=== PATIENT | female | born 1955 | race Caucasian/White ===

== ENCOUNTER → 2020-05-03 13:09 | Outpatient (BNVA) | payer BC, MEDICARE, SELFPAY | PROVIDERS: Family Provider Emergency Medicine; PCP Emergency Medicine; Visit Provider Family Medicine | DX: I10 Essential (primary) hypertension (principal); J30.2 Other seasonal allergic rhinitis; Z13.220 Encounter for screening for lipoid disorders; Z13.6 Encounter for screening for cardiovascular disorders; J32.9 Chronic sinusitis, unspecified; J41.0 Simple chronic bronchitis; J32.0 Chronic maxillary sinusitis; Z72.0 Tobacco use | CPT/HCPCS: 80053; 80061 ==

== ENCOUNTER → 2020-12-20 14:44 | Outpatient (BNVA) | payer BC, MEDICARE, SELFPAY | PROVIDERS: Family Provider Emergency Medicine; PCP Emergency Medicine; Visit Provider Family Medicine | DX: I10 Essential (primary) hypertension (principal); J32.0 Chronic maxillary sinusitis; H61.23 Impacted cerumen, bilateral; J44.9 Chronic obstructive pulmonary disease, unspecified | CPT/HCPCS: 80048 ==

== ENCOUNTER → 2021-05-18 11:41 | Outpatient (BNVA) | payer BC, MEDICARE, SELFPAY | PROVIDERS: Family Provider Emergency Medicine; PCP Emergency Medicine; Visit Provider Family Medicine | DX: I10 Essential (primary) hypertension (principal); Z20.822 Contact with and (suspected) exposure to COVID-19; J41.0 Simple chronic bronchitis; F90.9 Attention-deficit hyperactivity disorder, unspecified type; Z13.220 Encounter for screening for lipoid disorders; Z13.6 Encounter for screening for cardiovascular disorders; J44.1 Chronic obstructive pulmonary disease with (acute) exacerbation; Z11.59 Encounter for screening for other viral diseases; Z72.0 Tobacco use | CPT/HCPCS: 80053; 80061; 85025; 87635 ==

== ENCOUNTER → 2021-09-19 14:02 | Outpatient (BNVA) | payer BC, MEDICARE, SELFPAY | PROVIDERS: Family Provider Emergency Medicine; PCP Emergency Medicine; Visit Provider Family Medicine | DX: J41.0 Simple chronic bronchitis (principal) | CPT/HCPCS: 71046 ==

== ENCOUNTER → 2021-11-09 11:29 | Outpatient (BNVA) | payer BC, MEDICARE, SELFPAY | PROVIDERS: Family Provider Emergency Medicine; PCP Family Medicine; Visit Provider Internal Medicine Pulmonary Disease | DX: J44.9 Chronic obstructive pulmonary disease, unspecified (principal); I10 Essential (primary) hypertension; Z71.6 Tobacco abuse counseling; R06.00 Dyspnea, unspecified; U09.9 Post COVID-19 condition, unspecified; J30.2 Other seasonal allergic rhinitis; R06.02 Shortness of breath; F17.210 Nicotine dependence, cigarettes, uncomplicated; R06.09 Other forms of dyspnea | CPT/HCPCS: 82785; 83880; 85025; 86003 ==

== ENCOUNTER 2021-11-14 07:04 | Outpatient (CLI) | payer BC, MEDICARE, SELFPAY ==
--- NOTE | 2021-11-14 10:42 | MM_ITS ---
WS: [id number] Bilateral diagnostic 3D tomosynthesis digital mammogram, 11/14/2021 Clinical Data: N64.4 - Mastodynia Comparison: None. Findings: No spiculated masses or clustered calcifications are seen. The breast parenchymal pattern shows fat r eplacement. There is a marker on the left breast with the site of specific pain but no abnormalities are seen. A left breast ultrasound will be performed. MM/[place] [id number] Impression: 1. Negative bilateral mammograms. 2. Left breast ultrasound will be performed. BIRADS: 2-Benign FOLLOW UP: Need Additional Imaging The CAD swatch checker was used.
--- NOTE | 2021-11-14 10:42 | US_ITS ---
WS: [id number] Left breast ultrasound, 11/14/2021 Clinical Data: N64.4 - Mastodynia Comparison: None. Findings: The left breast was scanned at the 6:00 position 4 cm from the nipple. Only normal breast tissue seen . There were no cysts or masses. US/US breast LT limited* [id number] Impression: 1. Negative left breast ultrasound. 2. Return to annual screening mammograms. BIRADS: 2-Benign FOLLOW UP: 1 Year Follow-up
== END 2021-11-14 07:05 | disposition home or self-care (01) ==
LOC: RAD 07:10
PROVIDERS: Family Provider Emergency Medicine; PCP Family Medicine; Visit Provider Family Medicine
DX: N64.4 Mastodynia (principal)
CPT/HCPCS: 76642; 77062

== ENCOUNTER 2021-12-28 08:59 | Outpatient (CLI) | payer BC, MEDICARE, SELFPAY ==
--- NOTE | 2021-12-28 11:23 | PFTS_ITS ---
Date of Study:12/28/21 Date of Dictation: 12/30/2021 MECHANICS: Postbronchodilator forced vital capacity (FVC) is reduced. Postbronchodilator forced expiratory volume in one second (FEV1) is moderately reduced. FEV1/FVC is reduced. There is significant postbronchodilator response FLOW VOLUME LOOP: Sloping of expiratory limb suggestive of airway obstruction. LUNG VOLUMES: Total lung capacity (TLC) is normal. Residual volume (RV) is increased suggestive of air trapping. DIFFUSING CAPACITY FOR CARBON MONOXIDE: Normal INTERPRETATION: The spirometry showed moderate obstructive ventilatory defect. There is significant postbronchodilator response. Lung volumes suggestive of moderate air trapping. Gas transfer is normal. Clinical correlation recommended. MTDD
== END 2021-12-28 09:00 | disposition home or self-care (01) ==
LOC: RT 09:00
PROVIDERS: PCP Family Medicine; Visit Provider Internal Medicine Pulmonary Disease
DX: J44.9 Chronic obstructive pulmonary disease, unspecified (principal)
CPT/HCPCS: 94060; 94618; 94726; 94729; J7614

== ENCOUNTER → 2022-04-10 14:20 | Outpatient (BNVA) | payer BC, MEDICARE, SELFPAY | PROVIDERS: PCP Family Medicine; Visit Provider Family Medicine | DX: J41.0 Simple chronic bronchitis (principal); I10 Essential (primary) hypertension; J30.2 Other seasonal allergic rhinitis; J44.9 Chronic obstructive pulmonary disease, unspecified; E78.5 Hyperlipidemia, unspecified; N64.4 Mastodynia; Z59.9 Problem related to housing and economic circumstances, unspecified | CPT/HCPCS: 80053; 80061; 85025 ==

== ENCOUNTER → 2023-02-05 13:57 | Outpatient (BNVA) | payer BC, MEDICARE, SELFPAY | PROVIDERS: PCP Family Medicine; Visit Provider Nurse Practitioner Family | DX: R30.0 Dysuria (principal); N30.01 Acute cystitis with hematuria | CPT/HCPCS: 81000 ==

== ENCOUNTER → 2023-03-14 10:50 | Outpatient (BNVA) | payer BC, MEDICARE, SELFPAY | PROVIDERS: PCP Family Medicine; Visit Provider Family Medicine | DX: J41.0 Simple chronic bronchitis (principal); I10 Essential (primary) hypertension; J44.9 Chronic obstructive pulmonary disease, unspecified; J30.2 Other seasonal allergic rhinitis; K21.9 Gastro-esophageal reflux disease without esophagitis; E78.5 Hyperlipidemia, unspecified; J32.9 Chronic sinusitis, unspecified; R91.8 Other nonspecific abnormal finding of lung field; J32.0 Chronic maxillary sinusitis; E04.1 Nontoxic single thyroid nodule | CPT/HCPCS: 80053; 80061; 84439; 84443; 84481 ==

== ENCOUNTER → 2023-08-14 13:40 | Outpatient (BNVA) | payer OTHER, MEDICARE, SELFPAY | PROVIDERS: PCP Family Medicine; Visit Provider Family Medicine | DX: E87.6 Hypokalemia (principal); I10 Essential (primary) hypertension | CPT/HCPCS: 80048; 83735 ==

== ENCOUNTER → 2023-09-12 10:55 | Outpatient (BNVA) | payer OTHER, MEDICARE, SELFPAY | PROVIDERS: PCP Family Medicine; Visit Provider Family Medicine | DX: I10 Essential (primary) hypertension (principal); R25.2 Cramp and spasm; M10.9 Gout, unspecified; M19.90 Unspecified osteoarthritis, unspecified site; I48.0 Paroxysmal atrial fibrillation; R00.1 Bradycardia, unspecified | CPT/HCPCS: 80048; 83540; 83735; 84550 ==

== ENCOUNTER → 2023-11-04 08:44 | Outpatient (BNVA) | payer OTHER, MEDICARE, SELFPAY | PROVIDERS: PCP Family Medicine; Visit Provider Family Medicine | DX: E87.6 Hypokalemia (principal); K21.9 Gastro-esophageal reflux disease without esophagitis; I10 Essential (primary) hypertension; J44.9 Chronic obstructive pulmonary disease, unspecified; J30.2 Other seasonal allergic rhinitis; J32.9 Chronic sinusitis, unspecified; M10.9 Gout, unspecified; J41.0 Simple chronic bronchitis; R06.00 Dyspnea, unspecified; R06.02 Shortness of breath; I48.0 Paroxysmal atrial fibrillation | CPT/HCPCS: 71046; 80053; 83880; 85025 ==

== ENCOUNTER 2023-11-22 09:40 | Outpatient (CLI) | payer MEDICARE, OTHER, SELFPAY ==
--- NOTE | 2023-11-22 10:15 | USCV_ITS ---
Geno Wright Age: 67 Gender: F : 1955 Exam Date: 11/22/2023 10:16 Ordering Phys: Kamila Marsh MD Technologist: Harpreet Wheeler [place] [facility] [place]: hypertension BP: 140 / 60 HR: 55 Rhythm: Sinus Technical Quality: Adequate MEASUREMENTS (Male / Female) Normal Values 2D ECHO LV Diastolic Diameter PLAX 4.0 cm 4.2 - 5.9 / 3.9 - 5.3 cm IVS Diastolic Thickness 0.9 cm 0.6 - 1.0 / 0.6 - 0.9 cm IVS Systolic Thickness 1.3 cm LVPW Diastolic Thickness 1.4 cm 0.6 - 1.0 / 0.6 - 0.9 cm LVPW Systolic Thickness 1.5 cm LVOT Diameter 2.3 cm LV Ejection Fraction 2D Teich 62.7 % LV Ejection Fraction MOD 2C 59.4 % LV Ejection Fraction 2C AL 59.1 % LA Diameter 3.8 cm RA Systolic Volume 4C AL 47.4 ml RA Systolic Volume 4C MOD 46.9 ml LA Sys Volume AL 58.6 cm cubed LA Sys Volume Index AL 28.3 cm cubed/m squared Aorta at Sinotubular Diameter 2.1 cm IVC Diameter 1.5 cm M-MODE LA Ao Ratio MM 1.8 AV Cusp Separation MM 1.3 cm DOPPLER AV Peak Velocity 259.0 cm/s LVOT Peak Velocity 106.0 cm/s AV Area Cont Eq vti 1.6 cm squared AV Area Cont Eq pk 1.7 cm squared MV Peak Velocity 99.0 cm/s MV Area PHT 3.3 cm squared Mitral E to A Ratio 1.0 TV Peak Velocity 267.0 cm/s TR Peak Velocity 304.0 cm/s TR Peak Gradient 37.0 mmHg TR Mean Velocity 240.0 cm/s TR Mean Gradient 24.4 mmHg TR Velocity Time Integral 96.9 cm PV Peak Velocity 134.0 cm/s RV Ejection Time 0.3 s FINDINGS Left Ventricle Normal left ventricular size and systolic function, EF 59%.no regional wall motion abnormalities. Right Ventricle The right ventricle is normal in size and function. Right Atrium The right atrium is normal in size. Left Atrium The left atrium is normal in size. Mitral Valve Trace mitral valve regurgitation. Aortic Valve Mild aortic valve stenosis, MARIELOS 1.6 cm squared. Peak velocity of 2.59 m/s with a peak gradient of 27 and a mean gradient of 17 mmHg Tricuspid Valve Mild tricuspid valve regurgitation. Estimated pulmonary artery peak systolic pressure of 40 mmHg Pulmonic Valve Pulmonic valve not well visualized. Pericardium Normal pericardium without effusion. Aorta Normal ascending aorta dimension. IVC Normal inferior vena cava. CONCLUSIONS Normal left ventricular size and systolic function, EF 59% No regional wall motion abnormalities. Mild aortic valve stenosis, MARIELOS 1.6 cm squared. Peak velocity of 2.59 m/s with a peak gradient of 27 and a mean gradient of 17 mmHg. Mild tricuspid valve regurgitation. Estimated pulmonary artery peak systolic pressure of 40 mmHg. There is no pericardial effusion. There are no intracardiac masses. No similar previous studies are available for comparison Dr Michael Roman MD [facility] (Electronically Signed) Final Date: 22 November 2023 21:10 S
== END 2023-11-22 09:41 | disposition home or self-care (01) ==
LOC: RAD 09:41
PROVIDERS: PCP Family Medicine; Visit Provider Family Medicine
DX: I10 Essential (primary) hypertension (principal); I48.0 Paroxysmal atrial fibrillation; I08.0 Rheumatic disorders of both mitral and aortic valves
CPT/HCPCS: 93306

== ENCOUNTER → 2024-01-19 16:05 | Outpatient (BNVA) | payer OTHER, MEDICARE, SELFPAY | PROVIDERS: PCP Family Medicine; Visit Provider Nurse Practitioner Family | DX: R30.0 Dysuria (principal); N39.0 Urinary tract infection, site not specified | CPT/HCPCS: 81000; 87086 ==

== ENCOUNTER → 2024-02-11 07:46 | Outpatient (BNVA) | payer MEDICARE, OTHER, SELFPAY | PROVIDERS: PCP Family Medicine; Visit Provider Internal Medicine Critical Care Medicine | DX: R06.00 Dyspnea, unspecified (principal); J44.1 Chronic obstructive pulmonary disease with (acute) exacerbation; J44.89 Other specified chronic obstructive pulmonary disease; J30.2 Other seasonal allergic rhinitis; I27.20 Pulmonary hypertension, unspecified; R91.8 Other nonspecific abnormal finding of lung field; I48.0 Paroxysmal atrial fibrillation; I35.0 Nonrheumatic aortic (valve) stenosis; R00.1 Bradycardia, unspecified; K21.9 Gastro-esophageal reflux disease without esophagitis; K44.9 Diaphragmatic hernia without obstruction or gangrene; E66.09 Other obesity due to excess calories; Z68.34 Body mass index [BMI] 34.0-34.9, adult; R53.81 Other malaise; F17.210 Nicotine dependence, cigarettes, uncomplicated; Z71.82 Exercise counseling; Z71.6 Tobacco abuse counseling | CPT/HCPCS: 99215 ==

== ENCOUNTER → 2024-03-06 09:34 | Outpatient (BNVA) | payer OTHER, MEDICARE, SELFPAY | PROVIDERS: PCP Family Medicine; Referring Provider Family Medicine; Visit Provider Internal Medicine | DX: R00.1 Bradycardia, unspecified (principal); R07.9 Chest pain, unspecified | CPT/HCPCS: 93005 ==

== ENCOUNTER 2024-03-24 10:53 | Outpatient (CLI) | payer MEDICARE, OTHER, SELFPAY ==
[2024-03-24 11:15] VITALS: PULSE 58; RESP 18; O2SAT 96
[2024-03-24] MEDS: albuterol 2.5 mg/3 mL Neb INHALATION (11:15)
[2024-03-24 11:19] VITALS: PULSE 60
== END 2024-03-24 10:54 | disposition home or self-care (01) ==
PROVIDERS: PCP Family Medicine; Visit Provider Internal Medicine Critical Care Medicine
DX: J44.89 Other specified chronic obstructive pulmonary disease (principal); J44.9 Chronic obstructive pulmonary disease, unspecified; I27.20 Pulmonary hypertension, unspecified; R94.2 Abnormal results of pulmonary function studies
CPT/HCPCS: 94060; 94726; 94729; J7613

== ENCOUNTER → 2024-05-05 16:16 | Outpatient (BNVA) | payer OTHER, MEDICARE, SELFPAY | PROVIDERS: PCP Family Medicine; Visit Provider Family Medicine | DX: E03.9 Hypothyroidism, unspecified (principal); E04.1 Nontoxic single thyroid nodule; I10 Essential (primary) hypertension | CPT/HCPCS: 80048; 80061; 84443 ==

== ENCOUNTER → 2024-07-06 15:29 | Outpatient (BNVA) | payer OTHER, MEDICARE, SELFPAY | PROVIDERS: PCP Family Medicine; Visit Provider Nurse Practitioner | DX: R68.89 Other general symptoms and signs (principal) | CPT/HCPCS: 87400; 87426 ==

== ENCOUNTER → 2024-10-15 13:50 | Outpatient (BNVA) | payer OTHER, MEDICARE, SELFPAY | PROVIDERS: PCP Family Medicine; Referring Provider Family Medicine; Visit Provider Family Medicine | DX: I10 Essential (primary) hypertension (principal); E87.6 Hypokalemia; E78.5 Hyperlipidemia, unspecified; R60.0 Localized edema | CPT/HCPCS: 80048; 83735; 83880 ==

== ENCOUNTER 2024-11-10 23:02 | Emergency (ER) | payer OTHER, MEDICARE, SELFPAY ==
[2024-11-10 23:05] VITALS: BP 145/66; PULSE 67; RESP 18; TEMP 36.5; O2SAT 92; BMI 35.0
--- NOTE | 2024-11-10 23:25 | W.ED.ABDPA2 ---
HPI - Abdominal Pain General: Chief Complaint: Abdominal Pain Stated Complaint: Lower Left Back Oain Time Seen by Provider: 11/10/24 23:24 History of Present Illness: 68-year-old female with a history of morbid obesity, hyperlipidemia, GERD, hypertension and COPD who presents the emergency room with left-sided abdominal and flank pain. Started yesterday but is becoming worse. She reports sharp and burning type pains. She reports this is very severe she has had some cramping. She feels nauseous but has not vomited. She does report small bowel movements and some constipation and had taken some prune juice for that. She has had her gallbladder and appendix out in the past. She has been using Tylenol for pain. No dysuria. No hematuria. No fever. Related Data Home Medications ?Medication ?Instructions ?Recorded ?Confirmed fluticasone propionate 50 1 spray intranasal DAILY 02/11/24 11/05/24 mcg/actuation nasal spray,suspension (Allergy Relief (fluticasone)) Previous Rx's ?Medication ?Instructions ?Recorded diclofenac sodium 1 % topical gel 2 g topical QID #100 grams 12/25/23 (Arthritis Pain (diclofenac)) diaper,brief,adult,disposable #90 ea 05/05/24 (Depend Underwear For Women XL) ipratropium 20 mcg-albuterol 100 See Rx Instructions .Route 10/19/24 mcg/actuation mist for inhalation .COMPLEX #4 grams (Combivent Respimat) albuterol sulfate 2.5 mg/3 mL 2.5 mg (3 mL) inhalation Q4H PRN 10/27/24 (0.083 %) solution for nebulization shortness of breath or wheezing #180 mL albuterol sulfate 90 mcg/actuation 2 puff inhalation QID PRN 10/27/24 aerosol inhaler shortness of breath or wheezing #18 grams allopurinol 100 mg tablet See Rx Instructions .Route 10/27/24 .COMPLEX #90 tabs amlodipine 10 mg tablet See Rx Instructions .Route 10/27/24 .COMPLEX 90 days #90 tabs fexofenadine 180 mg tablet 180 mg PO DAILY 90 days #90 tabs 10/27/24 fluticasone propionate 230 2 puff inhalation BID #12 grams 10/27/24 mcg-salmeterol 21 mcg/actuation HFA inhaler (Advair HFA) furosemide 20 mg tablet (Lasix) 20 mg PO QAM 90 days #90 tabs 10/27/24 losartan 100 1 tab PO DAILY 90 days #90 tabs 10/27/24 mg-hydrochlorothiazide 25 mg tablet pantoprazole 40 mg tablet,delayed 40 mg PO DAILY 90 days #90 tabs 10/27/24 release potassium chloride 20 mEq 20 meq PO BID 90 days #180 tabs 10/27/24 tablet,extended release tizanidine 2 mg tablet 2 mg PO .at bedtime PRN muscle 10/27/24 spasticity #90 tabs metoprolol succinate 25 mg 25 mg PO DAILY 90 days #90 tabs 11/05/24 tablet,extended release 24 hr ondansetron 4 mg disintegrating 4 mg PO Q8H PRN nausea and 11/11/24 tablet vomiting #10 tabs tramadol 50 mg tablet 50 mg PO Q8H PRN pain #10 tabs 11/11/24 Allergies Allergy/AdvReac Type Severity Reaction Status Date / Time codeine AdvReac Mild ADR-Nausea Verified 11/10/24 23:13 doxycycline AdvReac Mild rash Verified 11/10/24 23:13 Review of Systems Narrative: Constitutional symptoms: Negative except as documented in HPI. Skin symptoms: Negative except as documented in HPI. Eye symptoms: Negative except as documented in HPI. ENMT symptoms: Negative except as documented in HPI. Respiratory symptoms: Negative except as documented in HPI. Cardiovascular symptoms: Negative except as documented in HPI. Gastrointestinal symptoms: Negative except as documented in HPI. Genitourinary symptoms: Negative except as documented in HPI. Musculoskeletal symptoms: Negative except as documented in HPI. Neurologic symptoms: Negative except as documented in HPI. Psychiatric symptoms: Negative except as documented in HPI. Endocrine symptoms: Negative except as documented in HPI. PFSH ED PFSH: Medical History History of COVID-19 Hyperlipidemia GERD (gastroesophageal reflux disease) Seasonal allergies Essential hypertension COPD (chronic obstructive pulmonary disease) Surgical History S/P cholecystectomy H/O tubal ligation S/P appendectomy Family History Family/Other CAD (coronary artery disease) Stroke Social History Smoking and tobacco/nicotine status: current every day tobacco/nicotine user cigarettes Packs smoked per day: 1.5 Years cigarettes smoked: 52 [ Other cigarette details: currently 1ppd, started at age 16] Second hand smoke exposure: No Alcohol intake: never Substance/Drug Use: never Current gender identity: Female Female Reproductive History: Spontaneous abortions: No Physical Exam Narrative: EXAM NARRATIVE: General: Alert, no acute distress. Skin: Warm, dry. Head: Normocephalic, atraumatic. Neck: Supple, trachea midline. Eye: Extraocular movements are intact. Ears, nose, mouth and throat: mucosa moist. Cardiovascular: Regular, Normal peripheral perfusion. Respiratory: Lungs are clear to auscultation, respirations are non-labored, breath sounds are equal, Symmetrical chest wall expansion. Gastrointestinal: Soft, some mild right-sided abdominal tenderness, Non distended Musculoskeletal: Normal ROM, no deformity. Neurological: Alert and oriented, No focal neurological deficit observed. Psychiatric: Cooperative, appropriate mood & affect. Course Vital Signs: Vital signs: Vital Signs Temperature 97.7 F 11/10/24 23:05 Pulse Rate 67 11/10/24 23:05 Respiratory Rate 18 11/10/24 23:05 Blood Pressure 145/66 11/10/24 23:05 Pulse Oximetry 92 11/10/24 23:05 Oxygen Delivery Me thod Room Air 11/10/24 23:05 MDM - Abdominal Pain Medical Decision Making Medical decision making: Differential diagnosis including but not limited to and based on the above HPI, review of systems and physical exam: Ureterolithiasis. Urinary tract infection. Appendicitis. Cholecystis. Musculoskeletal / back pain. Pyelonephritis. Orders placed to evaluate differential diagnosis based on the above differential, HPI and physical exam Lab Review: Laboratory results were reviewed and interpreted by myself the emergency room physician. No leukocytosis. No anemia. No renal failure. Urinalysis is negative for infection CT of the abdomen pelvis: Some prominent fluid in the small bowel which may indicate enteritis. Diverticulosis without diverticulitis. Pulmonary nodule. This needs a CT but can be done as an outpatient. I reviewed the patient's medical record. Reexamination: Patient remained stable. No increased work of breathing. No altered mental status. No focal motor deficits. Assessment and plan: Enteritis Abdominal pain Pulmonary nodule ? Morphine and Zofran in the emergency room. - Discharged home - Discussed plan with patient. Answered any questions. - Evaluation and treatment of this problem were appropriate in the emergency setting. Lab Data 11/10/24 23:40 11/10/24 23:40 Labs/Radiology: Radiology Impressions Abdomen/Pelvis CT 11/11/24 00:07 IMPRESSION: 1. Prominent fluid in the small bowel, please correlate for an enteritis. 2. Diverticulosis without diverticulitis. 3. Left lower lobe 9 mm pulmonary nodule incompletely visualized, dedicated chest CT advised for further evaluation. 4. Hepatic steatosis. 5. Cholecystectomy. Laboratory Results WBC 8.49 10^3/uL (3.29-11.43) 11/10/24 23:40 RBC 5.21 10^6/uL (3.85-5.65) 11/10/24 23:40 Hgb 14.80 g/dL (11.27-16.99) 11/10/24 23:40 Hct 45.5 % (36-47) 11/10/24 23:40 MCV 87.3 fl (85-98) 11/10/24 23:40 MCH 28.4 pg (27-33) 11/10/24 23:40 MCHC 32.5 g/dL (30-55) 11/10/24 23:40 RDW 13.0 % (12.1-15.1) 11/10/24 23:40 Plt Count 351 10^3/cmm (157-399) 11/10/24 23:40 MPV 9.9 fL (7.4-10.4) 11/10/24 23:40 Neut % (Auto) 67.0 % 11/10/24 23:40 Lymph % (Auto) 21.0 % 11/10/24 23:40 [place] % (Auto) 10.0 % 11/10/24 23:40 Eos % (Auto) 0.9 % 11/10/24 23:40 Baso % (Auto) 0.6 % 11/10/24 23:40 Neut # (Auto) 5.69 10^3/uL (1.8-7.7) 11/10/24 23:40 Lymph # (Auto) 1.8 10^3/uL (0.8-4.8) 11/10/24 23:40 [place] # (Auto) 0.9 10^3/uL (0.2-0.9) 11/10/24 23:40 Eos # (Auto) 0.1 10^3/uL (0.0-0.8) 11/10/24 23:40 Baso # (Auto) 0.1 10^3/uL (0.0-0.1) 11/10/24 23:40 Nucleated RBC % (auto) 0 % 11/10/24 23:40 Nucleated RBCs # 0.0 /100WBC 11/10/24 23:40 Sodium 138 mmol/L (136-145) 11/10/24 23:40 Potassium 4.0 mmol/L (3.5-5.1) 11/10/24 23:40 Chloride 99 mmol/L (98-107) 11/10/24 23:40 Carbon Dioxide 27 mmol/L (22-29) 11/10/24 23:40 Anion Gap 16.0 (5-19) 11/10/24 23:40 BUN 15 mg/dL (8-23) 11/10/24 23:40 Creatinine 0.6 mg/dL (0.5-0.9) 11/10/24 23:40 GFR Calculation 99.4 mL/min (90-130) 11/10/24 23:40 Glucose 103 mg/dL (65-115) 11/10/24 23:40 Calculated Osmolality 287 mOsm/kg (285-295) 11/10/24 23:40 Lactic Acid 1.0 mmol/L (0.5-2.2) 11/10/24 23:40 Calcium 9.6 mg/dL (8.5-10.5) 11/10/24 23:40 Total Bilirubin 0.3 mg/dL (0.15-1.2) 11/10/24 23:40 AST 12 U/L (0-32) 11/10/24 23:40 ALT 13 U/L (0-33) 11/10/24 23:40 Alkaline Phosphatase 106 U/L (35-105) H 11/10/24 23:40 C-Reactive Protein 15.8 mg/L (0.0-4.9) H 11/10/24 23:40 Total Protein 7.4 g/dL (6.6-8.7) 11/10/24 23:40 Albumin 4.0 g/dL (3.5-5.2) 11/10/24 23:40 Globulin 3.4 g/dL (1.3-4.6) 11/10/24 23:40 Lipase 20 U/L (13-60) 11/10/24 23:40 Urine Color Yellow (Yellow) 11/10/24 23:45 Urine Appearance Clear (CLEAR) 11/10/24 23:45 Urine pH 5.0 (5-7) 11/10/24 23:45 Ur Specific [place] 1.025 (1.005-1.030) 11/10/24 23:45 Urine Protein Negative (Negative) 11/10/24 23:45 Urine Glucose (UA) Negative (Normal) 11/10/24 23:45 Urine Ketones Trace (Negative) 11/10/24 23:45 Urine Blood Trace (Negative) A 11/10/24 23:45 Urine Nitrate Negative (Negative) 11/10/24 23:45 Urine Bilirubin Negative (Negative) 11/10/24 23:45 Urine Urobilinogen 1.0 mg/dL (Negative) 11/10/24 23:45 Ur Leukocyte Esterase Negative (Negative) 11/10/24 23:45 Urine RBC 3-5 /hpf (0-2) 11/10/24 23:45 Urine WBC 0-5 /hpf (0-5) 11/10/24 23:45 Ur Squamous Epith Cells 6-10 /hpf (0-5) 11/10/24 23:45 Amorphous Sediment Not Reportable 11/10/24 23:45 Urine Bacteria None seen /hpf (NONE) 11/10/24 23:45 Hyaline Casts 0.40 /lpf 11/10/24 23:45 All radiology interpretation(s) finalized by discharge Discharge Plan Discharge Patient Disposition: Home Clinical Impression: Enteritis, Abdominal pain, Pulmonary nodule Condition: Stable Prescriptions: New tramadol 50 mg tablet 50 mg PO Q8H PRN (Reason: pain) Qty: 10 0RF ondansetron 4 mg tablet,disintegrating 4 mg PO Q8H PRN (Reason: nausea and vomiting) Qty: 10 0RF No Action (DME) Depend Underwear For Women XL Misc See Rx Instructions .Route Qty: 90 12RF Rx Instructions: 3 daily diclofenac sodium [Arthritis Pain (diclofenac)] 1 % gel 2 g topical QID Qty: 100 1RF fluticasone propionate [Allergy Relief (fluticasone)] 50 mcg/actuation spray,suspension 1 spray INTRANASAL DAILY metoprolol succinate 25 mg tablet extended release 24 hr 25 mg PO DAILY 90 Days Qty: 90 3RF albuterol sulfate 2.5 mg /3 mL (0.083 %) solution for nebulization 2.5 mg INHALATION Q4H PRN (Reason: shortness of breath or wheezing) Qty: 180 5RF albuterol sulfate 90 mcg/actuation HFA aerosol inhaler 2 puff INHALATION QID PRN (Reason: shortness of breath or wheezing) Qty: 18 5RF allopurinol 100 mg tablet See Rx Instructions .ROUTE .COMPLEX Qty: 90 2RF Dose Instruction: Take 1 tablet by mouth once daily Rx Instructions: Take 1 tablet by mouth once daily amlodipine 10 mg tablet See Rx Instructions .ROUTE .COMPLEX 90 Days Qty: 90 2RF Dose Instruction: TAKE 1 TABLET BY MOUTH DAILY Rx Instructions: TAKE 1 TABLET BY MOUTH DAILY fexofenadine 180 mg tablet 180 mg PO DAILY 90 Days Qty: 90 2RF fluticasone propion-salmeterol [Advair HFA] 230-21 mcg/actuation HFA aerosol inhaler 2 puff inhalation BID Qty: 12 5RF Rx Instructions: administer with spacer furosemide [Lasix] 20 mg tablet 20 mg PO QAM 90 Days Qty: 90 3RF losartan-hydrochlorothiazide 100-25 mg tablet 1 tab PO DAILY 90 Days Qty: 90 2RF pantoprazole 40 mg tablet,delayed release (DR/EC) 40 mg PO DAILY 90 Days Qty: 90 2RF potassium chloride 20 mEq tablet extended release 20 meq PO BID 90 Days Qty: 180 2RF tizanidine 2 mg tablet 2 mg PO .at bedtime PRN (Reason: muscle spasticity) Qty: 90 3RF Combivent Respimat 20-100 mcg/actuation mist See Rx Instructions .ROUTE .COMPLEX Qty: 4 5RF Dose Instruction: INHALE 1 PUFF EVERY 4 HOURS Rx Instructions: INHALE 1 PUFF EVERY 4 HOURS Discharge Orders: Discharge ED (Routine); Ordered 11/11/24 Ordered By: Ina Joyner Referrals: Kamila Marsh MD [Primary Care Provider, Family Practice] Patient Instructions: Abdominal Pain (ED), Opioid Safety, Pain Management Activity Restrictions/Additional Instructions: A pulmonary nodule was seen on imaging. This will need follow up imaging with your primary provider. Please schedule an appointment concerning this. Within the next week or 2 see your primary about this and a CT of the chest should be done as an outpatient Thank you for choosing [facility] for your healthcare needs today. You have been screened and evaluated and felt safe for discharge. Health conditions do change or evolve sometimes and as such it is important that you follow up with your Primary Doctor to be re checked, 3-5 days is a general good time frame for follow up. You are always welcome to return to the ED for re assessment if your symptoms are worsening or you have new concerns Print Language: Swedish Coding Level of Care Code ED Repair Cameraman for Jeremie River
[2024-11-10 23:45] LABS: Basophils # 0.1 10^3/uL (0.0-0.1); Basophils % 0.6 %; Eosinophils # 0.1 10^3/uL (0.0-0.8); Eosinophils % 0.9 %; Hematocrit 45.5 % (36-47); Lymphocytes # 1.8 10^3/uL (0.8-4.8); Mean Corpuscular HGB Conc 32.5 g/dL (30-55); Mean Corpuscular Hemoglobin 28.4 pg (27-33); Mean Corpuscular Volume 87.3 fl (85-98); Mean Platelet Volume 9.9 fL (7.4-10.4); Monocytes # 0.9 10^3/uL (0.2-0.9); Neutrophils # 5.69 10^3/uL (1.8-7.7); Nucleated Red Blood Cells % 0 %; Platelet Count 351 10^3/cmm (157-399); Red Blood Count 5.21 10^6/uL (3.85-5.65); White Blood Count 8.49 10^3/uL (3.29-11.43)
[2024-11-11 00:05] LABS: Alanine Aminotransferase 13 U/L (0-33); Alkaline Phosphatase 106 U/L (35-105); Aspartate Amino Transferase 12 U/L (0-32); Blood Urea Nitrogen 15 mg/dL (8-23); C Reactive Protein 15.8 mg/L (0.0-4.9); Calcium 9.6 mg/dL (8.5-10.5); Carbon Dioxide 27 mmol/L (22-29); Chloride 99 mmol/L (98-107); Creatinine Clr Calc Pharmacy 74.1978; Globulin 3.4 g/dL (1.3-4.6); Glomerular Filtration Rate 99.4 mL/min (90-130); Glucose 103 mg/dL (65-115); Lipase 20 U/L (13-60); Osmolality Calculated 287 mOsm/kg (285-295); Sodium 138 mmol/L (136-145); Total Bilirubin 0.3 mg/dL (0.15-1.2); Total Protein 7.4 g/dL (6.6-8.7)
--- NOTE | 2024-11-11 00:07 | CTR_ITS ---
PROCEDURE INFORMATION: Exam: CT Abdomen And Pelvis With Contrast Exam date and time: 11/11/2024 12:16 AM Age: 68 years old Clinical indication: Abdominal pain; Localized; Left lower quadrant (llq); Prior surgery; Surgery date: 6+ months; Surgery type: Cholecystectomy TECHNIQUE: Imaging protocol: Computed tomography of the abdomen and pelvis with contrast. Radiation optimization: All CT scans at this facility use at least one of these dose optimization techniques: automated exposure control; mA and/or kV adjustment per patient size (includes targeted exams where dose is matched to clinical indication); or iterative reconstruction. Contrast material: OMNI 350; Contrast volume: 100 ml; Contrast route: INTRAVENOUS (IV); COMPARISON: CR XR chest 2V* [id number] 11/04/2023 8:55 AM RADIATION DOSE METRICS: Total DLP (mGy-cm): 954.8 FINDINGS: Lungs: Left lower lobe 9 mm pulmonary nodule incompletely visualized, dedicated chest CT advised for further evaluation. Liver: Hepatic steatosis. Gallbladder and biliary ducts: Cholecystectomy. Pancreas: Normal. No ductal dilation. Spleen: Normal. No splenomegaly. Adrenal glands: Normal. No mass. Kidneys and ureters: Normal. No hydronephrosis. Stomach and bowel: Prominent fluid in the small bowel, please correlate for an enteritis. Diverticulosis without diverticulitis. Appendix: No evidence of appendicitis. Intraperitoneal space: Unremarkable. No free air. No significant fluid collection. Vasculature: Unremarkable. No abdominal aortic aneurysm. Lymph nodes: Unremarkable. No enlarged lymph nodes. Urinary bladder: Unremarkable as visualized. Reproductive: Unremarkable as visualized. Bones/joints: Unremarkable. No acute fracture. Soft tissues: Unremarkable. CT/CT abdomen pelvis w con* [id number] IMPRESSION: 1. Prominent fluid in the small bowel, please correlate for an enteritis. 2. Diverticulosis without diverticulitis. 3. Left lower lobe 9 mm pulmonary nodule incompletely visualized, dedicated chest CT advised for further evaluation. 4. Hepatic steatosis. 5. Cholecystectomy.
[2024-11-11 00:14] LABS: Bilirubin Urine Negative (Negative); Blood Urine Trace (Negative); Glucose Urine UA Negative (Normal); Ketones Urine Trace (Negative); Leukocyte Esterase Urine Negative (Negative); Nitrate Urine Negative (Negative); Protein Urine Negative (Negative); Specific Gravity, Urine 1.025 (1.005-1.030); Urine Appearance Clear (CLEAR); Urine Color Yellow (Yellow)
[2024-11-11 00:17] LABS: Add Urine Microscopic? YES; Bacteria Urine None Seen /hpf; WBC Urine 0-5 /hpf (0-5)
[2024-11-11] MEDS: iohexol 350 mg/mL 500 mL Btl (per mL) IV (00:18)
[2024-11-11] MEDS: ketorolac 30 mg/mL INJ IVP (00:53)
[2024-11-11] MEDS: HYDROcodone-acetaminophen 10-325 mg Tablet 1 TAB PO (01:35)
[2024-11-11 01:50] VITALS: BP 142/74; PULSE 87; RESP 17; TEMP 37.1; O2SAT 95
== END 2024-11-11 01:51 | disposition home or self-care (01) ==
PROVIDERS: Physician Assistant; Emergency Provider Emergency Medicine; PCP Family Medicine
DX: K52.9 Noninfective gastroenteritis and colitis, unspecified (principal); R10.9 Unspecified abdominal pain; R91.1 Solitary pulmonary nodule; F17.210 Nicotine dependence, cigarettes, uncomplicated; J44.9 Chronic obstructive pulmonary disease, unspecified; E78.5 Hyperlipidemia, unspecified; I10 Essential (primary) hypertension
CPT/HCPCS: 74177; 80053; 81001; 83605; 83690; 85025; 86140; 87040; 96374; 99285; J1885; J9999

== ENCOUNTER 2025-01-15 12:39 | Outpatient (CLI) | payer OTHER, MEDICARE, SELFPAY ==
--- NOTE | 2025-01-15 13:00 | CT_ITS ---
WS: [id number] LDCT LUNG CANCER SCREENING HISTORY: Z12.2 - Encounter for screening for malignant neoplasm of... TECHNIQUE: Axial imaging performed from the apices to 1 cm below the costophrenic angles. Coronal and sagittal reformats are submitted with axial MIP series. All CT scans at [facility] use at least one of these dose optimization techniques: automated exposure control; mA and/or kV adjustment per patient size (includes targeted exams where dose is matched to clinical indication); or iterative reconstruction. DLP: 148.72 mGy.cm DIvol: Mean CTDIvol: 4.00 (mGy) COMPARISON: 11/11/2024 Diagnostic quality: Satisfactory Lungs: Hyperexpanded lungs with emphysema. Subpleural nodule RIGHT upper lobe 5 mm. Subpleural nodule LEFT lower lobe 3 mm. Subpleural nodule posterior medial LEFT lower lobe 7 mm. 3 mm nodule RIGHT upper lobe, image 61 series 5. Heart: Normal size heart with no pericardial effusion.. Other findings: Minimal atherosclerosis aorta. Normal size pulmonary artery. 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 No adenopathy. Small hiatal hernia. Prior cholecystectomy. Increase in thoracic kyphosis. CT/CT lung screening [id number] IMPRESSION: LUNG-RADS: 3-Probably Benign FOLLOW UP: 6 Month LDCT OTHER FINDINGS (S MODIFIER): None.
== END 2025-01-15 12:40 | disposition home or self-care (01) ==
LOC: RAD 12:39
PROVIDERS: PCP Family Medicine; Visit Provider Family Medicine
DX: Z12.2 Encounter for screening for malignant neoplasm of respiratory organs (principal); F17.210 Nicotine dependence, cigarettes, uncomplicated; J43.9 Emphysema, unspecified; R91.8 Other nonspecific abnormal finding of lung field; I70.0 Atherosclerosis of aorta; K44.9 Diaphragmatic hernia without obstruction or gangrene; Z90.49 Acquired absence of other specified parts of digestive tract; M40.204 Unspecified kyphosis, thoracic region; Z90.89 Acquired absence of other organs
CPT/HCPCS: 71271

== ENCOUNTER 2025-01-23 11:06 | Inpatient (IN) | payer OTHER, MEDICARE, SELFPAY ==
[2025-01-23] VITALS (14 sets, daily range): BP systolic 91–127; BP diastolic 52–91; PULSE 65–122; RESP 16–28; TEMP 36.1–36.9; O2SAT 89–97; BMI 35.6; BMI 35.9
--- OUTSIDE RECORDS SUMMARY | 2025-01-23 11:11 | XMS_ITS | Encounter Summary ---
Author Organization [facility] Address [address] [place] [address] Care Team Providers Care Assembler Insulator Name Role Phone Ha Manuel DO Primary Care Provider [phone] Encounter Details Date Type Department Care Team (Latest Contact Info) Description 07/16/2002 Outpatient Historical [facility] [address] [phone] Mahamed Damian MD [address] [place] [address] ALLERGIC RHINITIS NOS (Primary Dx) Social History Tobacco Use Types Packs/Day Years Used Date Smoking Tobacco: Never Assessed Comments Unknown Sex and Gender Information Value Date Recorded Sex Assigned at Not on file 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
--- OUTSIDE RECORDS SUMMARY | 2025-01-23 11:11 | XMS_ITS | Encounter Summary ---
Author Organization [facility] Address [address] [place] [address] Care Team Providers Care Food Beverage Supervisor Name Role Phone Ha Manuel DO Primary Care Provider [phone] Encounter Details Date Type Department Care Team (Latest Contact Info) Description 01/21/2003 Outpatient Historical [facility] Medicine [place] [address], [place] [phone] Mahamed Damian MD [address] [place] [address] ABDOMINAL PAIN UNSPEC SITE (Primary Dx); GASTRITIS/DUODEN NOS W/O HEMORRH Social History Tobacco Use Types Packs/Day Years Used Date Smoking Tobacco: Never Assessed Comments Unknown Sex and Gender Information Value Date Recorded Sex Assigned at Not on file 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
--- OUTSIDE RECORDS SUMMARY | 2025-01-23 11:12 | XMS_ITS | Encounter Summary ---
Author Organization [facility] Address [address] [place] [address] Care Team Providers Care Urban Gardening Specialist Name Role Phone Ha Manuel DO Primary Care Provider [phone] Encounter Details Date Type Department Care Team (Latest Contact Info) Description 04/17/2004 Outpatient Historical [facility] Medicine [address] [phone] Alisha Villa MD [address] [place] [phone] ROSACEA (Primary Dx); NONSPECIF SKIN ERUPT NEC; OTHER MALAISE AND FATIGUE Social History Tobacco Use Types Packs/Day Years Used Date Smoking Tobacco: Never Assessed Comments Unknown Sex and Gender Information Value Date Recorded Sex Assigned at Not on file Legal Sex Female 2:59 AM WEB CONTENT EDITOR Gender Identity Not on file Sexual Orientation Not on file documented as of this encounter Plan of Treatment Not on file documented as of this encounter Visit Diagnoses Diagnosis Rosacea- Primary Rash and other nonspecific skin eruption Other malaise and fatigue documented in this encounter Care Teams Urban Gardening Specialist Relationship Specialty Start Date End Date Ha Manuel DO [address] [place] [address] PCP - General 09/08/09 documented as of this encounter
--- OUTSIDE RECORDS SUMMARY | 2025-01-23 11:12 | XMS_ITS | Encounter Summary ---
Author Organization [facility] Address [address] [facility] Attn: [place] [address] Care Team Providers Care Radiation Therapy Technologist Name Role Phone Ha Manuel DO Primary Care Provider [phone] Encounter Details Date Type Department Care Team (Late st Contact Info) Description 09/23/1999 Outpatient Historical Alisha Villa MD [address] [place] [phone] Social History Tobacco Use Types Packs/Day Years Used Date Smoking Tobacco: Never Assessed Comments Unknown Sex and Gender Information Value Date Recorded Sex Assigned at Not on file Legal Sex Female 2:59 AM PACKAGE LINER Gender Identity Not on file Sexual Orientation Not on file documented as of this encounter Plan of Treatment Not on file documented as of this encounter Visit Diagnoses Not on filedocumented in this encounter Care Teams Radiation Therapy Technologist Relationship Specialty Start Date End Date Ha Manuel DO [address] [place] [address] PCP - General 09/08/09 documented as of this encounter
--- OUTSIDE RECORDS SUMMARY | 2025-01-23 11:12 | XMS_ITS | Encounter Summary ---
Author Organization [facility] Address [address] [place] [address] Care Team Providers Care Counter Former Name Role Phone Ha Manuel DO Primary Care Provider [phone] Encounter Details Date Type Department Care Team (Late st Contact Info) Description 03/31/1998 Outpatient Historical [address] [phone] Social History Tobacco Use Types Packs/Day Years Used Date Smoking Tobacco: Never Assessed Comments Unknown Sex and Gender Information Value Date Recorded Sex Assigned at Not on file Legal Sex Female 2:59 AM POST CLOSING SPECIALIST Gender Identity Not on file Sexual Orientation Not on file documented as of this encounter Plan of Treatment Not on file documented as of this encounter Visit Diagnoses Not on filedocumented in this encounter Care Teams Counter Former Relationship Specialty Start Date End Date Ha Manuel DO [address] [place] [address] PCP - General 09/08/09 documented as of this encounter
--- OUTSIDE RECORDS SUMMARY | 2025-01-23 11:12 | XMS_ITS | Encounter Summary ---
Author Organization [facility] Address [address] [place] [address] Care Team Providers Care Fly Tier Name Role Phone Ha Manuel DO Primary Care Provider [phone] Encounter Details Date Type Department Care Team (Latest Contact Info) Description 05/07/2002 Outpatient Historical [facility] Medicine [address] [phone] Alisha Villa MD [address] [place] [phone] Gynecologic examination (Primary Dx); VAGINITIS NOS Social History Tobacco Use Types Packs/Day Years Used Date Smoking Tobacco: Never Assessed Comments Unknown Sex and Gender Information Value Date Recorded Sex Assigned at Not on file Legal Sex Female 2:59 AM INSPECTOR MULTIFOCAL LENS Gender Identity Not on file Sexual Orientation Not on file documented as of this encounter Plan of Treatment Not on file documented as of this encounter Visit Diagnoses Diagnosis Gynecologic examination- Primary Gynecological examination Vaginitis and vulvovaginitis, unspecified documented in this encounter Care Teams Fly Tier Relationship Specialty Start Date End Date Ha Manuel DO [address] [place] [address] PCP - General 09/08/09 documented as of this encounter
--- OUTSIDE RECORDS SUMMARY | 2025-01-23 11:12 | XMS_ITS | Encounter Summary ---
Author Organization [facility] Address [address] [place] [address] Care Team Providers Care Convention Services Manager Name Role Phone Ha Manuel DO Primary Care Provider Encounter Details Date Type Department Care Team (Latest Contact Info) Description 06/19/2000 Outpatient Historical [facility] Medicine [address] [phone] Mahamed Damian MD [address] [place] [address] Mastodynia (Primary Dx); Impacted cerumen; Cervicalgia; Backache, unspecified Social History Tobacco Use Types Packs/Day Years Used Date Smoking Tobacco: Never Assessed Comments Unknown Sex and Gender Information Value Date Recorded Sex Assigned at Not on file Legal Sex Female 2:59 AM CHIPPER Gender Identity Not on file Sexual Orientation Not on file documented as of this encounter Plan of Treatment Not on file documented as of this encounter Visit Diagnoses Diagnosis Mastodynia- Primary Impacted cerumen Cervicalgia Backache, unspecified documented in this encounter Care Teams Convention Services Manager Relationship Specialty Start Date End Date Ha Manuel DO [address] [place] [address] PCP - General 09/08/09 documented as of this encounter
--- OUTSIDE RECORDS SUMMARY | 2025-01-23 11:12 | XMS_ITS | Encounter Summary ---
Author Organization [facility] Address [address] [place] [address] Care Team Providers Care Eyelet Cutter Name Role Phone Ha Manuel DO Primary Care Provider [phone] Encounter Details Date Type Department Care Team (Latest Contact Info) Description 06/29/2004 Outpatient Historical [facility] Medicine [address] [phone] Alisha Villa MD [address] [place] [phone] INGROWING NAIL (Primary Dx) Social History Tobacco Use Types Packs/Day Years Used Date Smoking Tobacco: Never Assessed Comments Unknown Sex and Gender Information Value Date Recorded Sex Assigned at Not on file Legal Sex Female 2:59 AM JUNIOR AUTOMATION ENGINEER Gender Identity Not on file Sexual Orientation Not on file documented as of this encounter Plan of Treatment Not on file documented as of this encounter Visit Diagnoses Diagnosis Ingrowing nail- Primary documented in this encounter Care Teams Eyelet Cutter Relationship Specialty Start Date End Date Ha Manuel DO [address] [place] [address] PCP - General 09/08/09 documented as of this encounter
--- OUTSIDE RECORDS SUMMARY | 2025-01-23 11:12 | XMS_ITS | Encounter Summary ---
Author Organization [facility] Address [address] [place] [address] Care Team Providers Care Enlisted Aircrew/Aerial Observer/Gunner Name Role Phone Ha Manuel DO Primary Care Provider [phone] Encounter Details Date Type Department Care Team (Latest Contact Info) Description 08/12/[address] [facility] Medicine [address] [phone] Alisha Villa MD [address] [place] [phone] URIN TRACT INFECTION NOS (Primary Dx) Social History Tobacco Use Types Packs/Day Years Used Date Smoking Tobacco: Never Assessed Comments Unknown Sex and Gender Information Value Date Recorded Sex Assigned at Not on file Legal Sex Female 2:59 AM FINISHING RANGE FEEDER Gender Identity Not on file Sexual Orientation Not on file documented as of this encounter Plan of Treatment Not on file documented as of this encounter Visit Diagnoses Diagnosis Urinary tract infection, site not specified- Primary documented in this encounter Care Teams Enlisted Aircrew/Aerial Observer/Gunner Relationship Specialty Start Date End Date Ha Manuel DO [address] [place] [address] PCP - General 09/08/09 documented as of this encounter
--- OUTSIDE RECORDS SUMMARY | 2025-01-23 11:12 | XMS_ITS | Encounter Summary ---
Author Organization [facility] Address [address] [place] [address] Care Team Providers Care Used Car Sales Supervisor Name Role Phone Ha Manuel DO Primary Care Provider [phone] Encounter Details Date Type Department Care Team (Latest Contact Info) Description 07/30/2001 Outpatient Historical [facility] Medicine [address] [phone] Mahamed Damian MD [address] [place] [address] ACUTE FRONTAL SINUSITIS (Primary Dx) Social History Tobacco Use Types Packs/Day Years Used Date Smoking Tobacco: Never Assessed Comments Unknown Sex and Gender Information Value Date Recorded Sex Assigned at Not on file Legal Sex Female 2:59 AM STONEWORKING SANDER Gender Identity Not on file Sexual Orientation Not on file documented as of this encounter Plan of Treatment Not on file documented as of this encounter Visit Diagnoses Diagnosis Acute frontal sinusitis- Primary documented in this encounter Care Teams Used Car Sales Supervisor Relationship Specialty Start Date End Date Ha Manuel DO [address] [place] [address] PCP - General 09/08/09 documented as of this encounter
--- OUTSIDE RECORDS SUMMARY | 2025-01-23 11:12 | XMS_ITS | Encounter Summary ---
Author Organization [facility] Address [address] [place] [address] Care Team Providers Care Chinese Herbalist Name Role Phone Ha Manuel DO Primary Care Provider [phone] Encounter Details Date Type Department Care Team (Latest Contact Info) Description 06/13/2001 Outpatient Historical [facility] Medicine [address] [phone] Mahamed Damian MD [address] [place] [address] ACUTE TONSILLITIS (Primary Dx); URIN TRACT INFECTION NOS; ACUTE BRONCHITIS Social History Tobacco Use Types Packs/Day Years Used Date Smoking Tobacco: Never Assessed Comments Unknown Sex and Gender Information Value Date Recorded Sex Assigned at Not on file Legal Sex Female 2:59 AM EQUAL OPPORTUNITY ASSISTANT Gender Identity Not on file Sexual Orientation Not on file documented as of this encounter Plan of Treatment Not on file documented as of this encounter Visit Diagnoses Diagnosis Acute tonsillitis- Primary Urinary tract infection, site not specified Acute bronchitis documented in this encounter Care Teams Chinese Herbalist Relationship Specialty Start Date End Date Ha Manuel DO [address] [place] [address] PCP - General 09/08/09 documented as of this encounter
--- OUTSIDE RECORDS SUMMARY | 2025-01-23 11:12 | XMS_ITS | Encounter Summary ---
Author Organization [facility] Address [address] [place] [address] Care Team Providers Care Engineering Professor Name Role Phone Ha Manuel DO Primary Care Provider [phone] Encounter Details Date Type Department Care Team (Late st Contact Info) Description 04/27/1998 Outpatient Historical [facility] Medicine [address] [phone] Social History Tobacco Use Types Packs/Day Years Used Date Smoking Tobacco: Never Assessed Comments Unknown Sex and Gender Information Value Date Recorded Sex Assigned at Not on file Legal Sex Female 2:59 AM PUNCHBOARD STUFFER Gender Identity Not on file Sexual Orientation Not on file documented as of this encounter Plan of Treatment Not on file documented as of this encounter Visit Diagnoses Not on filedocumented in this encounter Care Teams Engineering Professor Relationship Specialty Start Date End Date Ha Manuel DO [address] [place] [address] PCP - General 09/08/09 documented as of this encounter
--- OUTSIDE RECORDS SUMMARY | 2025-01-23 11:12 | XMS_ITS | Encounter Summary ---
Author Organization [facility] Address [address] [place] [address] Care Team Providers Care Lamp Cleaner Street Light Name Role Phone Ha Manuel DO Primary Care Provider [phone] Encounter Details Date Type Department Care Team (Latest Contact Info) Description 12/31/2001 Outpatient Historical [facility] Medicine [address] [phone] Mahamed Damian MD [address] [place] [address] LUMBAGO (Primary Dx); NEURALGIA/NEURITIS NOS; HEMATURIA Social History Tobacco Use Types Packs/Day Years Used Date Smoking Tobacco: Never Assessed Comments Unknown Sex and Gender Information Value Date Recorded Sex Assigned at Not on file Legal Sex Female 2:59 AM INDUSTRIAL RELATIONS COUNSELOR Gender Identity Not on file Sexual Orientation Not on file documented as of this encounter Plan of Treatment Not on file documented as of this encounter Visit Diagnoses Diagnosis Lumbago- Primary Neuralgia, neuritis, and radiculitis, unspecified Hematuria documented in this encounter Care Teams Lamp Cleaner Street Light Relationship Specialty Start Date End Date Ha Manuel DO [address] [place] [address] PCP - General 09/08/09 documented as of this encounter
--- OUTSIDE RECORDS SUMMARY | 2025-01-23 11:12 | XMS_ITS | Encounter Summary ---
Author Organization [facility] Address [address] [place] [address] Care Team Providers Care Certified Nursing Assistant Instructor Name Role Phone Ha Manuel DO Primary Care Provider Encounter Details Date Type Department Care Team (Latest Contact Info) Description 03/25/2000 Outpatient Historical [address] [phone] Mahamed Damian MD [address] [place] [phone] Urinary tract infection, site not specified (Primary Dx) Social History Tobacco Use Types Packs/Day Years Used Date Smoking Tobacco: Never Assessed Comments Unknown Sex and Gender Information Value Date Recorded Sex Assigned at Not on file Legal Sex Female 2:59 AM PATCHING MACHINE OPERATOR Gender Identity Not on file Sexual Orientation Not on file documented as of this encounter Plan of Treatment Not on file documented as of this encounter Visit Diagnoses Diagnosis Urinary tract infection, site not specified- Primary documented in this encounter Care Teams Certified Nursing Assistant Instructor Relationship Specialty Start Date End Date Ha Manuel DO [address] [place] [address] PCP - General 09/08/09 documented as of this encounter
--- OUTSIDE RECORDS SUMMARY | 2025-01-23 11:12 | XMS_ITS | Clinical Summary ---
Author Organization [facility] Address [address] [facility] Attn: Epic Prelude ADT [place] [address] Care Team Providers Care Production Engineer Name Role Phone Ha Manuel Primary Care Provider [phone] Allergies Active Allergy Reactions Criticality Noted Date Comments Codeine Nausea and Vomiting Low 05/23/2009 Social History Tobacco Use Types Packs/Day Years Used Date Smoking Tobacco: Every Day Cigarettes Alcohol Use Standard Drinks/Week Comments No 0 (1 standard drink = 0.6 oz pur e alcohol) Comments Unknown Sex and Gender Information Value Date Recorded Sex Assigned at Not on file Legal Sex Female 9:29 AM CLERICAL INVESTIGATOR Gender Identity Not on file Sexual Orientation Not on file Plan of Treatment Health Maintenance Due Date Last Done Comments DTAP/TDAP/TD VACCINES (1 - Tdap) 11/26/1974 PNEUMOCOCCAL VACCINE 50+ YEARS (1 of 2 - PCV) 11/26/18 75 BREAST CANCER SCREENING 1995 COLORECTAL SCREENING 11/26/2000 Colorectal Cancer Screening 11/26/2000 FIT-DNA Q 3 years 11/26/2000 FIT/FOBT Q 1 year 11/26/2000 Flex Sig/CT Colonography Q 5 years 11/26/2000 ZOSTER VACCINE (1 of 2) 11/26/2005 OSTEOPOROSIS SCREENING 11/26/2020 INFLUENZA VACCINE (#1) 2025 RSV VACCINE (60+ or ) (1 - 1-dose 75+ series) 11/26/2030 Insurance MEDICARE PART A AND B [facility] BLUE ACCESS/TRUE Vers[employer] PPO Care Teams Production Engineer Relationship Specialty Start Date End Date Ha Manuel DO [address] [place] [phone] PCP - General 09/08/09
--- OUTSIDE RECORDS SUMMARY | 2025-01-23 11:12 | XMS_ITS | Encounter Summary ---
Author Organization [facility] Address [address] [place] [address] Care Team Providers Care Simplex Printer Installer Name Role Phone Ha Manuel DO Primary Care Provider [phone] Encounter Details Date Type Department Care Team (Latest Contact Info) Description 2001 Outpatient Historical [facility] Medicine [address] [phone] Alisha Villa MD [address] [place] [phone] Sciatic nerve lesion (Primary Dx) Social History Tobacco Use Types Packs/Day Years Used Date Smoking Tobacco: Never Assessed Comments Unknown Sex and Gender Information Value Date Recorded Sex Assigned at Not on file Legal Sex Female 2:59 AM COMMUNITY ARTIST Gender Identity Not on file Sexual Orientation Not on file documented as of this encounter Plan of Treatment Not on file documented as of this encounter Visit Diagnoses Diagnosis Sciatic nerve lesion- Primary Lesion of sciatic nerve documented in this encounter Care Teams Simplex Printer Installer Relationship Specialty Start Date End Date Ha Manuel DO [address] [place] [address] PCP - General 09/08/09 documented as of this encounter
--- OUTSIDE RECORDS SUMMARY | 2025-01-23 11:12 | XMS_ITS | Encounter Summary ---
Author Organization [facility] Address [address] [place] [address] Care Team Providers Care Straight Truck Driver Name Role Phone Ha Manuel DO Primary Care Provider [phone] Encounter Details Date Type Department Care Team (Latest Contact Info) Description 03/18/2000 Outpatient Historical [facility] [place] [address] [facility] [place] [phone] Jacob Luevano MD NO ADDRESS ON FILE Calculus of gallbladder with other cholecystitis, without mention of obstruction (Primary Dx); Follow-up examination following surgery Social History Tobacco Use Types Packs/Day Years Used Date Smoking Tobacco: Never Assessed Comments Unknown Sex and Gender Information Value Date Recorded Sex Assigned at Not on file Legal Sex Female 2:59 AM DEPUTY SHERIFF LIEUTENANT Gender Identity Not on file Sexual Orientation Not on file documented as of this encounter Plan of Treatment Not on file documented as of this encounter Visit Diagnoses Diagnosis Calculus of gallbladder with other cholecystitis, without mention of obstruction- Primary Follow-up examination following surgery documented in this encounter Care Teams Straight Truck Driver Relationship Specialty Start Date End Date Ha Manuel DO [address] [place] [address] PCP - General 09/08/09 documented as of this encounter
--- OUTSIDE RECORDS SUMMARY | 2025-01-23 11:12 | XMS_ITS | Encounter Summary ---
Author Organization [facility] Address [address] [place] [address] Care Team Providers Care Senior Loan Processor Name Role Phone Ha Manuel DO Primary Care Provider [phone] Encounter Details Date Type Department Care Team (Latest Contact Info) Description 04/14/[address] [facility] Medicine [address] [phone] Alisha Villa MD [address] [place] [phone] NONSPECIF SKIN ERUPT NEC (Primary Dx) Social History Tobacco Use Types Packs/Day Years Used Date Smoking Tobacco: Never Assessed Comments Unknown Sex and Gender Information Value Date Recorded Sex Assigned at Not on file Legal Sex Female 2:59 AM SAMPLE MOUNTER Gender Identity Not on file Sexual Orientation Not on file documented as of this encounter Plan of Treatment Not on file documented as of this encounter Visit Diagnoses Diagnosis Rash and other nonspecific skin eruption- Primary documented in this encounter Care Teams Senior Loan Processor Relationship Specialty Start Date End Date Ha Manuel DO [address] [place] [address] PCP - General 09/08/09 documented as of this encounter
--- OUTSIDE RECORDS SUMMARY | 2025-01-23 11:12 | XMS_ITS | Encounter Summary ---
Author Organization [facility] Address [address] [place] [address] Care Team Providers Care Swiss Machinist Name Role Phone Ha Manuel DO Primary Care Provider [phone] Encounter Details Date Type Department Care Team (Latest Contact Info) Description 05/28/2001 Outpatient Historical [facility] Medicine [address], [place] [phone] Mahamed Damian MD [address] [place] [address] ABDOMINAL PAIN UNSPEC SITE (Primary Dx); BACKACHE NOS; PAINFUL RESPIRATION Social History Tobacco Use Types Packs/Day Years Used Date Smoking Tobacco: Never Assessed Comments Unknown Sex and Gender Information Value Date Recorded Sex Assigned at Not on file Legal Sex Female 2:59 AM HOSE FINISHER Gender Identity Not on file Sexual Orientation Not on file documented as of this encounter Plan of Treatment Not on file documented as of this encounter Visit Diagnoses Diagnosis Abdominal pain, unspecified site- Primary Backache, unspecified Painful respiration documented in this encounter Care Teams Swiss Machinist Relationship Specialty Start Date End Date Ha Manuel DO [address] [place] [address] PCP - General 09/08/09 documented as of this encounter
--- OUTSIDE RECORDS SUMMARY | 2025-01-23 11:12 | XMS_ITS | Encounter Summary ---
Author Organization [facility] Address [address] [place] [address] Care Team Providers Care Website Project Manager Name Role Phone Ha Manuel DO Primary Care Provider [phone] Encounter Details Date Type Department Care Team (Latest Contact Info) Description 06/26/2002 Outpatient Historical [facility] Medicine [address] [phone] Mahamed Damian MD [address] [place] [address] UNSPECIFIED VIRAL INFECTION (Primary Dx); OTITIS MEDIA NOS; ACUTE PHARYNGITIS Social History Tobacco Use Types Packs/Day Years Used Date Smoking Tobacco: Never Assessed Comments Unknown Sex and Gender Information Value Date Recorded Sex Assigned at Not on file Legal Sex Female 2:59 AM VENEER JOINTER OFFBEARER Gender Identity Not on file Sexual Orientation Not on file documented as of this encounter Plan of Treatment Not on file documented as of this encounter Visit Diagnoses Diagnosis Unspecified viral infection, in conditions classified elsewhere and of unspecified site- Primary Unspecified otitis media Acute pharyngitis documented in this encounter Care Teams Website Project Manager Relationship Specialty Start Date End Date Ha Manuel DO [address] [place] [address] PCP - General 09/08/09 documented as of this encounter
--- OUTSIDE RECORDS SUMMARY | 2025-01-23 11:12 | XMS_ITS | Encounter Summary ---
Author Organization [facility] Address [address] [place] [address] Care Team Providers Care Camp Coordinator Name Role Phone Ha Manuel DO Primary Care Provider [phone] Encounter Details Date Type Department Care Team (Latest Contact Info) Description 06/05/2000 Outpatient Historical [facility] Medicine [address] [phone] Mahamed Dmaian MD [address] [place] [address] Unspecified otitis media (Primary Dx); Acute tonsillitis Social History Tobacco Use Types Packs/Day Years Used Date Smoking Tobacco: Never Assessed Comments Unknown Sex and Gender Information Value Date Recorded Sex Assigned at Not on file Legal Sex Female 2:59 AM AUTOMATIC WASHER MECHANIC Gender Identity Not on file Sexual Orientation Not on file documented as of this encounter Plan of Treatment Not on file documented as of this encounter Visit Diagnoses Diagnosis Unspecified otitis media- Primary Acute tonsillitis documented in this encounter Care Teams Camp Coordinator Relationship Specialty Start Date End Date Ha Manuel DO [address] [place] [address] PCP - General 09/08/09 documented as of this encounter
--- OUTSIDE RECORDS SUMMARY | 2025-01-23 11:12 | XMS_ITS | Encounter Summary ---
Author Organization [facility] Address [address] [place] [address] Care Team Providers Care Thread Grinder Tool Name Role Phone Ha Manuel DO Primary Care Provider [phone] Encounter Details Date Type Department Care Team (Latest Contact Info) Description 08/02/2003 Outpatient Historical [facility] Medicine [address] [phone] Alisha Villa MD [address] [place] [phone] OTHER MALAISE AND FATIGUE (Primary Dx) Social History Tobacco Use Types Packs/Day Years Used Date Smoking Tobacco: Never Assessed Comments Unknown Sex and Gender Information Value Date Recorded Sex Assigned at Not on file Legal Sex Female 2:59 AM REFERRAL AND INFORMATION AIDE Gender Identity Not on file Sexual Orientation Not on file documented as of this encounter Plan of Treatment Not on file documented as of this encounter Visit Diagnoses Diagnosis Other malaise and fatigue- Primary documented in this encounter Care Teams Thread Grinder Tool Relationship Specialty Start Date End Date Ha Manuel DO [address] [place] [address] PCP - General 09/08/09 documented as of this encounter
--- OUTSIDE RECORDS SUMMARY | 2025-01-23 11:12 | XMS_ITS | Encounter Summary ---
Author Organization [facility] Address [address] [place] [address] Care Team Providers Care Leader Assembler Name Role Phone Ha Manuel DO Primary Care Provider [phone] Encounter Details Date Type Department Care Team (Latest Contact Info) Description 06/22/2004 Outpatient Historical [facility] Medicine [address] [phone] Alisha Villa MD [address] [place] [phone] CELLULITIS, TOE NOS (Primary Dx) Social History Tobacco Use Types Packs/Day Years Used Date Smoking Tobacco: Never Assessed Comments Unknown Sex and Gender Information Value Date Recorded Sex Assigned at Not on file Legal Sex Female 2:59 AM CFD ENGINEER Gender Identity Not on file Sexual Orientation Not on file documented as of this encounter Plan of Treatment Not on file documented as of this encounter Visit Diagnoses Diagnosis Cellulitis and abscess of toe, unspecified- Primary documented in this encounter Care Teams Leader Assembler Relationship Specialty Start Date End Date Ha Manuel DO [address] [place] [address] PCP - General 09/08/09 documented as of this encounter
--- OUTSIDE RECORDS SUMMARY | 2025-01-23 11:12 | XMS_ITS | Encounter Summary ---
Author Organization [facility] Address [address] [facility] Attn: [place] [address] Care Team Providers Care 2Nd Grade Teacher Name Role Phone Ha Manuel DO Primary Care Provider [phone] Encounter Details Date Type Department Care Team (Late st Contact Info) Description 03/11/2000 Outpatient Historical Jacob Luevano MD NO ADDRESS ON FILE Social History Tobacco Use Types Packs/Day Years Used Date Smoking Tobacco: Never Assessed Comments Unknown Sex and Gender Information Value Date Recorded Sex Assigned at Not on file Legal Sex Female 2:59 AM TYPO MACHINE OPERATOR Gender Identity Not on file Sexual Orientation Not on file documented as of this encounter Plan of Treatment Not on file documented as of this encounter Visit Diagnoses Not on filedocumented in this encounter Care Teams 2Nd Grade Teacher Relationship Specialty Start Date End Date Ha Manuel DO [address] [place] [address] PCP - General 09/08/09 documented as of this encounter
--- OUTSIDE RECORDS SUMMARY | 2025-01-23 11:12 | XMS_ITS | Encounter Summary ---
Author Organization [facility] Address [address] [place] [address] Care Team Providers Care Blunger Name Role Phone Ha Manuel DO Primary Care Provider [phone] Encounter Details Date Type Department Care Team (Latest Contact Info) Description 08/08/1999 Outpatient Historical [facility] Medicine [address], [place] [phone] Mahamed Damian MD [address] [place] [address] Acute frontal sinusitis (Primary Dx) Social History Tobacco Use Types Packs/Day Years Used Date Smoking Tobacco: Never Assessed Comments Unknown Sex and Gender Information Value Date Recorded Sex Assigned at Not on file Legal Sex Female 2:59 AM HOMICIDE DETECTIVE Gender Identity Not on file Sexual Orientation Not on file documented as of this encounter Plan of Treatment Not on file documented as of this encounter Visit Diagnoses Diagnosis Acute frontal sinusitis- Primary documented in this encounter Care Teams Blunger Relationship Specialty Start Date End Date Ha Manuel DO [address] [place] [address] PCP - General 09/08/09 documented as of this encounter
--- OUTSIDE RECORDS SUMMARY | 2025-01-23 11:12 | XMS_ITS | Encounter Summary ---
Author Organization [facility] Address [address] [place] [address] Care Team Providers Care Pearl Digger Name Role Phone Ha Manuel DO Primary Care Provider [phone] Encounter Details Date Type Department Care Team (Latest Contact Info) Description 03/04/2002 Outpatient Historical [facility] Medicine [address] [phone] Mahamed Damian MD [address] [place] [address] SPRAIN SHOULDER/ARM NOS (Primary Dx) Social History Tobacco Use Types Packs/Day Years Used Date Smoking Tobacco: Never Assessed Comments Unknown Sex and Gender Information Value Date Recorded Sex Assigned at Not on file Legal Sex Female 2:59 AM BIAS MACHINE OPERATOR HELPER Gender Identity Not on file Sexual Orientation Not on file documented as of this encounter Plan of Treatment Not on file documented as of this encounter Visit Diagnoses Diagnosis Sprain and strain of unspecified site of shoulder and upper arm- Primary documented in this encounter Care Teams Pearl Digger Relationship Specialty Start Date End Date Ha Manuel DO [address] [place] [address] PCP - General 09/08/09 documented as of this encounter
--- OUTSIDE RECORDS SUMMARY | 2025-01-23 11:12 | XMS_ITS | Encounter Summary ---
Author Organization [facility] Address [address] [place] [address] Care Team Providers Care Oil Heaterman Name Role Phone Ha Manuel DO Primary Care Provider Encounter Details Date Type Department Care Team (Latest Contact Info) Description 07/09/2002 Outpatient Historical [facility] Medicine [place] [address] [phone] Mahamed Damian MD [address] [place] [address] PNEUMONIA, ORGANISM NOS (Primary Dx) Social History Tobacco Use Types Packs/Day Years Used Date Smoking Tobacco: Never Assessed Comments Unknown Sex and Gender Information Value Date Recorded Sex Assigned at Not on file Legal Sex Female 2:59 AM MANAGER OF CASE MANAGEMENT Gender Identity Not on file Sexual Orientation Not on file documented as of this encounter Plan of Treatment Not on file documented as of this encounter Visit Diagnoses Diagnosis Pneumonia, organism unspecified(486)- Primary Pneumonia, organism unspecified documented in this encounter Care Teams Oil Heaterman Relationship Specialty Start Date End Date Ha Manuel DO [address] [place] [address] PCP - General 09/08/09 documented as of this encounter
--- OUTSIDE RECORDS SUMMARY | 2025-01-23 11:12 | XMS_ITS | Encounter Summary ---
Author Organization [facility] Address [address] [place] [address] Care Team Providers Care Bicycle Rental Clerk Name Role Phone Ha Manuel DO Primary Care Provider [phone] Encounter Details Date Type Department Care Team (Latest Contact Info) Description 01/24/2004 Outpatient Historical [facility] Medicine [address] [phone] Alisha Villa MD [address] [place] [phone] ROSACEA (Primary Dx); URIN TRACT INFECTION NOS Social History Tobacco Use Types Packs/Day Years Used Date Smoking Tobacco: Never Assessed Comments Unknown Sex and Gender Information Value Date Recorded Sex Assigned at Not on file Legal Sex Female 2:59 AM SPARK TESTER Gender Identity Not on file Sexual Orientation Not on file documented as of this encounter Plan of Treatment Not on file documented as of this encounter Visit Diagnoses Diagnosis Rosacea- Primary Urinary tract infection, site not specified documented in this encounter Care Teams Bicycle Rental Clerk Relationship Specialty Start Date End Date Ha Manuel DO [address] [place] [address] PCP - General 09/08/09 documented as of this encounter
--- OUTSIDE RECORDS SUMMARY | 2025-01-23 11:12 | XMS_ITS | Encounter Summary ---
Author Organization [facility] Address [address] [place] [address] Care Team Providers Care Time Study Analyst Name Role Phone Ha Manuel DO Primary Care Provider [phone] Encounter Details Date Type Department Care Team (Late st Contact Info) Description 05/07/2002 Outpatient Historical [facility] Medicine [place] [address] [phone] Tanya Trinidad, [facility] [address] [phone] Social History Tobacco Use Types Packs/Day Years Used Date Smoking Tobacco: Never Assessed Comments Unknown Sex and Gender Information Value Date Recorded Sex Assigned at Not on file Legal Sex Female 2:59 AM MANAGER SOFTWARE DEVELOPMENT Gender Identity Not on file Sexual Orientation Not on file documented as of this encounter Plan of Treatment Not on file documented as of this encounter Visit Diagnoses Not on filedocumented in this encounter Care Teams Time Study Analyst Relationship Specialty Start Date End Date Ha Manuel DO [address] [place] [address] PCP - General 09/08/09 documented as of this encounter
--- OUTSIDE RECORDS SUMMARY | 2025-01-23 11:12 | XMS_ITS | Encounter Summary ---
Author Organization [facility] Address [address] [place] [address] Care Team Providers Care Plate Drying Machine Tender Name Role Phone Ha Manuel DO Primary Care Provider [phone] Encounter Details Date Type Department Care Team (Latest Contact Info) Description 05/11/2003 Outpatient Historical [facility] Medicine [address], [place] [phone] Mahamed Damian MD [address] [place] [address] ACUTE BRONCHITIS (Primary Dx) Social History Tobacco Use Types Packs/Day Years Used Date Smoking Tobacco: Never Assessed Comments Unknown Sex and Gender Information Value Date Recorded Sex Assigned at Not on file Legal Sex Female 2:59 AM ACCOUNTS COLLECTOR Gender Identity Not on file Sexual Orientation Not on file documented as of this encounter Plan of Treatment Not on file documented as of this encounter Visit Diagnoses Diagnosis Acute bronchitis- Primary documented in this encounter Care Teams Plate Drying Machine Tender Relationship Specialty Start Date End Date Ha Manuel DO [address] [place] [address] PCP - General 09/08/09 documented as of this encounter
--- OUTSIDE RECORDS SUMMARY | 2025-01-23 11:12 | XMS_ITS | Encounter Summary ---
Author Organization [employer] [facility] Address [address] [place] [address] Care Team Providers Care Horseback Excavator Name Role Phone Ha Manuel DO Primary Care Provider [phone] Encounter Details Date Type Department Care Team (Latest Contact Info) Description 06/13/1999 Outpatient Historical [facility] Junior Boss MD [address] [phone] Sprain of neck (Primary Dx); Sprain and strain of other specified sites of shoulder and upper arm Social History Tobacco Use Types Packs/Day Years Used Date Smoking Tobacco: Never Assessed Comments Unknown Sex and Gender Information Value Date Recorded Sex Assigned at Not on file Legal Sex Female 2:59 AM BODY WELDER Gender Identity Not on file Sexual Orientation Not on file documented as of this encounter Plan of Treatment Not on file documented as of this encounter Visit Diagnoses Diagnosis Sprain of neck- Primary Neck sprain and strain Sprain and strain of other specified sites of shoulder and upper arm documented in this encounter Care Teams Horseback Excavator Relationship Specialty Start Date End Date Ha Manuel DO [address] [place] [address] PCP - General 09/08/09 documented as of this encounter
--- OUTSIDE RECORDS SUMMARY | 2025-01-23 11:12 | XMS_ITS | Encounter Summary ---
Author Organization [facility] Address [address] [place] [address] Care Team Providers Care Life Support Technician Name Role Phone Ha Manuel DO Primary Care Provider [phone] Encounter Details Date Type Department Care Team (Latest Contact Info) Description 05/21/2001 Outpatient Historical [facility] Medicine [address], [place] [phone] Mahamed Damian MD [address] [place] [address] ABDOMINAL PAIN UNSPEC SITE (Primary Dx) Social History Tobacco Use Types Packs/Day Years Used Date Smoking Tobacco: Never Assessed Comments Unknown Sex and Gender Information Value Date Recorded Sex Assigned at Not on file Legal Sex Female 2:59 AM GLOVE SEWER Gender Identity Not on file Sexual Orientation Not on file documented as of this encounter Plan of Treatment Not on file documented as of this encounter Visit Diagnoses Diagnosis Abdominal pain, unspecified site- Primary documented in this encounter Care Teams Life Support Technician Relationship Specialty Start Date End Date Ha Manuel DO [address] [place] [address] PCP - General 09/08/09 documented as of this encounter
--- OUTSIDE RECORDS SUMMARY | 2025-01-23 11:12 | XMS_ITS | Encounter Summary ---
Author Organization [facility] Address [address] [place] [address] Care Team Providers Care Primary Teacher Name Role Phone Ha Manuel DO Primary Care Provider [phone] Encounter Details Date Type Department Care Team (Latest Contact Info) Description 03/17/2004 Outpatient Historical [facility] Medicine [address] [phone] Alisha Villa MD [address] [place] [phone] ACUTE BRONCHITIS (Primary Dx); OTITIS MEDIA NOS Social History Tobacco Use Types Packs/Day Years Used Date Smoking Tobacco: Never Assessed Comments Unknown Sex and Gender Information Value Date Recorded Sex Assigned at Not on file Legal Sex Female 2:59 AM DRUG ABUSE TECHNICIAN Gender Identity Not on file Sexual Orientation Not on file documented as of this encounter Plan of Treatment Not on file documented as of this encounter Visit Diagnoses Diagnosis Acute bronchitis- Primary Unspecified otitis media documented in this encounter Care Teams Primary Teacher Relationship Specialty Start Date End Date Ha Manuel DO [address] [place] [address] PCP - General 09/08/09 documented as of this encounter
--- OUTSIDE RECORDS SUMMARY | 2025-01-23 11:12 | XMS_ITS | Encounter Summary ---
Author Organization [facility] Address [address] [place] [address] Care Team Providers Care Dredge Or Barge Shore Hand Name Role Phone Ha Manuel DO Primary Care Provider [phone] Encounter Details Date Type Department Care Team (Latest Contact Info) Description 08/29/2004 Outpatient Historical [facility] Medicine [address], [place] [phone] Mahamed Damian MD [address] [place] [address] ACUTE FRONTAL SINUSITIS (Primary Dx); ACUTE BRONCHITIS; TRACHEA/BRONCHUS DIS NEC Social History Tobacco Use Types Packs/Day Years Used Date Smoking Tobacco: Never Assessed Comments Unknown Sex and Gender Information Value Date Recorded Sex Assigned at Not on file Legal Sex Female 2:59 AM CNC MILLING MACHINIST Gender Identity Not on file Sexual Orientation Not on file documented as of this encounter Plan of Treatment Not on file documented as of this encounter Visit Diagnoses Diagnosis Acute frontal sinusitis- Primary Acute bronchitis Other diseases of trachea and bronchus, not elsewhere classified documented in this encounter Care Teams Dredge Or Barge Shore Hand Relationship Specialty Start Date End Date aH Manuel DO [address] [place] [address] PCP - General 09/08/09 documented as of this encounter
--- OUTSIDE RECORDS SUMMARY | 2025-01-23 11:12 | XMS_ITS | Encounter Summary ---
Author Organization [facility] Address [address] [place] [address] Care Team Providers Care Payroll Auditor Name Role Phone Ha Manuel DO Primary Care Provider [phone] Encounter Details Date Type Department Care Team (Latest Contact Info) Description 09/21/1999 Outpatient Historical [facility] Medicine [address] [phone] Alisha Villa MD [address] [place] [phone] Abdominal pain, right upper quadrant (Primary Dx); Acute pharyngitis; Diarrhea; Nausea alone Social History Tobacco Use Types Packs/Day Years Used Date Smoking Tobacco: Never Assessed Comments Unknown Sex and Gender Information Value Date Recorded Sex Assigned at Not on file Legal Sex Female 2:59 AM FEATHER DRYING MACHINE OPERATOR Gender Identity Not on file Sexual Orientation Not on file documented as of this encounter Plan of Treatment Not on file documented as of this encounter Visit Diagnoses Diagnosis Abdominal pain, right upper quadrant- Primary Acute pharyngitis Diarrhea Nausea alone documented in this encounter Care Teams Payroll Auditor Relationship Specialty Start Date End Date Ha Manuel DO [address] [place] [address] PCP - General 09/08/09 documented as of this encounter
--- OUTSIDE RECORDS SUMMARY | 2025-01-23 11:12 | XMS_ITS | Encounter Summary ---
Author Organization [facility] Address [address] [place] [address] Care Team Providers Care Motion Designer Name Role Phone Ha Manuel DO Primary Care Provider [phone] Encounter Details Date Type Department Care Team (Latest Contact Info) Description 02/16/2004 Outpatient Historical [facility] Medicine [address] [phone] Alisha Villa MD [address] [place] [phone] ACUTE BRONCHITIS (Primary Dx); HYPERTENSION NOS Social History Tobacco Use Types Packs/Day Years Used Date Smoking Tobacco: Never Assessed Comments Unknown Sex and Gender Information Value Date Recorded Sex Assigned at Not on file Legal Sex Female 2:59 AM TISSUE INSERTER Gender Identity Not on file Sexual Orientation Not on file documented as of this encounter Plan of Treatment Not on file documented as of this encounter Visit Diagnoses Diagnosis Acute bronchitis- Primary Unspecified essential hypertension documented in this encounter Care Teams Motion Designer Relationship Specialty Start Date End Date Ha Manuel DO [address] [place] [address] PCP - General 09/08/09 documented as of this encounter
--- OUTSIDE RECORDS SUMMARY | 2025-01-23 11:12 | XMS_ITS | Encounter Summary ---
Author Organization [facility] Address [address] [place] [address] Care Team Providers Care Physical Integration Practitioner Name Role Phone Ha Manuel DO Primary Care Provider [phone] Encounter Details Date Type Department Care Team (Latest Contact Info) Description 07/02/2002 Outpatient Historical [facility] Medicine [place] [address] [phone] Mahamed Damian MD [address] [place] [address] UNS ASTHMA WOSTATUS ASTHMATICUS (Primary Dx); PNEUMONIA, ORGANISM NOS Social History Tobacco Use Types Packs/Day Years Used Date Smoking Tobacco: Never Assessed Comments Unknown Sex and Gender Information Value Date Recorded Sex Assigned at Not on file Legal Sex Female 2:59 AM PROCESS SAFETY ENGINEERING TECHNOLOGIST Gender Identity Not on file Sexual Orientation Not on file documented as of this encounter Plan of Treatment Not on file documented as of this encounter Visit Diagnoses Diagnosis Unspecified asthma(493.90)- Primary Unspecified asthma Pneumonia, organism unspecified(486) Pneumonia, organism unspecified documented in this encounter Care Teams Physical Integration Practitioner Relationship Specialty Start Date End Date Ha Manuel DO [address] [place] [address] PCP - General 09/08/09 documented as of this encounter
--- OUTSIDE RECORDS SUMMARY | 2025-01-23 11:12 | XMS_ITS | Encounter Summary ---
Author Organization [facility] Address [address] [place] [address] Care Team Providers Care Asian Studies Professor Name Role Phone Ha Manuel DO Primary Care Provider [phone] Encounter Details Date Type Department Care Team (Latest Contact Info) Description 10/24/2000 Outpatient Historical [address] [phone] Mahamed Damian MD [address] [place] [address] Pneumonia, organism unspecified(486) (Primary Dx) Social History Tobacco Use Types Packs/Day Years Used Date Smoking Tobacco: Never Assessed Comments Unknown Sex and Gender Information Value Date Recorded Sex Assigned at Not on file Legal Sex Female 2:59 AM BEVERAGE STEWARD Gender Identity Not on file Sexual Orientation Not on file documented as of this encounter Plan of Treatment Not on file documented as of this encounter Visit Diagnoses Diagnosis Pneumonia, organism unspecified(486)- Primary Pneumonia, organism unspecified documented in this encounter Care Teams Asian Studies Professor Relationship Specialty Start Date End Date Ha Manuel DO [address] [place] [address] PCP - General 09/08/09 documented as of this encounter
--- OUTSIDE RECORDS SUMMARY | 2025-01-23 11:12 | XMS_ITS | Encounter Summary ---
Author Organization [facility] Address [address] [facility] Attn: [place] [address] Care Team Providers Care Vp Global Marketing Solutions Name Role Phone Ha Manuel DO Primary Care Provider Encounter Details Date Type Department Care Team (Latest Contact Info) Description 06/13/1999 Emergency Pedro Mcleod MD NO ADDRESS ON FILE Social History Tobacco Use Types Packs/Day Years Used Date Smoking Tobacco: Never Assessed Comments Unknown Sex and Gender Information Value Date Recorded Sex Assigned at Not on file Legal Sex Female 2:59 AM HOME SCHOOL LIAISON OFFICER Gender Identity Not on file Sexual Orientation Not on file documented as of this encounter Plan of Treatment Not on file documented as of this encounter Visit Diagnoses Not on filedocumented in this encounter Care Teams Vp [employer] Relationship Specialty Start Date End Date Ha Manuel DO [address] [place] [address] PCP - General 09/08/09 documented as of this encounter
--- OUTSIDE RECORDS SUMMARY | 2025-01-23 11:12 | XMS_ITS | Encounter Summary ---
Author Organization [facility] Address [address] [place] [address] Care Team Providers Care Solar Manufacturer'S Representative Name Role Phone Ha Manuel DO Primary Care Provider [phone] Encounter Details Date Type Department Care Team (Late st Contact Info) Description 04/13/1998 Outpatient Historical [facility] Medicine [address] [phone] Social History Tobacco Use Types Packs/Day Years Used Date Smoking Tobacco: Never Assessed Comments Unknown Sex and Gender Information Value Date Recorded Sex Assigned at Not on file Legal Sex Female 2:59 AM HUSBANDRY TECHNICIAN Gender Identity Not on file Sexual Orientation Not on file documented as of this encounter Plan of Treatment Not on file documented as of this encounter Visit Diagnoses Not on filedocumented in this encounter Care Teams Solar Manufacturer'S Representative Relationship Specialty Start Date End Date Ha Manuel DO [address] [place] [address] PCP - General 09/08/09 documented as of this encounter
--- OUTSIDE RECORDS SUMMARY | 2025-01-23 11:12 | XMS_ITS | Encounter Summary ---
Author Organization [facility] Address [address] [place] [address] Care Team Providers Care Church Administrator Name Role Phone Ha Manuel DO Primary Care Provider [phone] Encounter Details Date Type Department Care Team (Latest Contact Info) Description 07/06/2002 Outpatient Historical [facility] [place] [address] [phone] Mahamed Damian MD [address] [place] [phone] UNSPECIFIED VIRAL INFECTION (Primary Dx) Social History Tobacco Use Types Packs/Day Years Used Date Smoking Tobacco: Never Assessed Comments Unknown Sex and Gender Information Value Date Recorded Sex Assigned at Not on file Legal Sex Female 2:59 AM CTC OPERATOR Gender Identity Not on file Sexual Orientation Not on file documented as of this encounter Plan of Treatment Not on file documented as of this encounter Visit Diagnoses Diagnosis Unspecified viral infection, in conditions classified elsewhere and of unspecified site- Primary documented in this encounter Care Teams Church Administrator Relationship Specialty Start Date End Date Ha Manuel DO [address] [place] [address] PCP - General 09/08/09 documented as of this encounter
--- OUTSIDE RECORDS SUMMARY | 2025-01-23 11:12 | XMS_ITS | Clinical Summary ---
Author Organization [facility] Heriberto marte Banks Address [address] [place] [address] Phone Care Team Providers Care Geospatial Information Technologist Name Role Phone Ha Manuel Primary Care Provider [phone] Allergies Active Allergy Reactions Criticality Noted Date Comments Codeine Nausea and Vomiting Low 05/23/2009 Medications ibuprofen (MOTRIN) 800 mg Oral Tab Take 800 mg by mouth every 6 hours as needed for Pain. Active Propoxyphene N-Acetaminophen (DARVOCET A500) 100-500 mg Oral Tab Take by mouth. Active lisinopril (PRINIVIL) 30 mg Oral Tab Take 30 mg by mouth daily. Active Active Problems No known active problems Social History Tobacco Use Types Packs/Day Years Used Date Smoking Tobacco: Every Day Cigarettes 1 20 Alcohol Use Standard Drinks/Week Comments No 0 (1 standard drink = 0.6 oz pur e alcohol) Comments No Sex and Gender Information Value Date Recorded Sex Assigned at Not on file Legal Sex Female 2:59 AM LAYOUT INSPECTOR Gender Identity Not on file Sexual Orientation Not on file Last Filed Vital Signs Vital Sign Reading Time Taken Comments Blood Pressure 147/70 08/16/2009 8:03 AM LAYOUT INSPECTOR Pulse 74 08/16/2009 8:03 AM LAYOUT INSPECTOR Temperature 36.1 C (97 F) 08/16/2009 7:38 AM LAYOUT INSPECTOR Respiratory Rate 16 08/16/2009 8:03 AM LAYOUT INSPECTOR Oxygen Saturation 98% 08/16/2009 8:03 AM LAYOUT INSPECTOR Inhaled Oxygen Concentration - - Weight 98 kg (216 lb) 09/01/2009 1:48 PM CDT Height 160 cm (5' 3 ) 09/01/2009 1:48 PM CDT Body Mass Index 38.26 09/01/2009 1:48 PM CDT Plan of Treatment Health Maintenance Due Date [...] (1 - 1-dose 75+ series) 11/26/2030 Insurance DISABILITY DETERMINATION Care Teams Geospatial Information Technologist Relationship Specialty Start Date End Date Ha Manule DO [address] [place] [address] PCP - General 09/08/09
--- OUTSIDE RECORDS SUMMARY | 2025-01-23 11:12 | XMS_ITS | Encounter Summary ---
Author Organization [facility] Address [address] [place] [address] Care Team Providers Care Home Appraiser Name Role Phone Ha Manuel DO Primary Care Provider [phone] Encounter Details Date Type Department Care Team (Latest Contact Info) Description 03/24/2004 Outpatient Historical [facility] Medicine [address] [phone] Alisha Villa MD [address] [place] [phone] ACUTE BRONCHITIS (Primary Dx); INFEC OTITIS EXTERNA NOS Social History Tobacco Use Types Packs/Day Years Used Date Smoking Tobacco: Never Assessed Comments Unknown Sex and Gender Information Value Date Recorded Sex Assigned at Not on file Legal Sex Female 2:59 AM POLICE CAPTAIN SENIOR Gender Identity Not on file Sexual Orientation Not on file documented as of this encounter Plan of Treatment Not on file documented as of this encounter Visit Diagnoses Diagnosis Acute bronchitis- Primary Infective otitis externa, unspecified documented in this encounter Care Teams Home Appraiser Relationship Specialty Start Date End Date Ha Manuel DO [address] [place] [phone] PCP - General 09/08/09 documented as of this encounter
--- OUTSIDE RECORDS SUMMARY | 2025-01-23 11:12 | XMS_ITS | Encounter Summary ---
Author Organization [facility] Address [address] [place] [address] Care Team Providers Care Booth Manager Name Role Phone Ha Manuel DO Primary Care Provider [phone] Encounter Details Date Type Department Care Team (Latest Contact Info) Description 01/29/2000 Outpatient Historical [facility] Medicine [address] [phone] Mahamed Damian MD [address] [place] [address] Pneumonia, organism unspecified(486) (Primary Dx); Shortness of breath; Allergy, unspecified not elsewhere classified Social History Tobacco Use Types Packs/Day Years Used Date Smoking Tobacco: Never Assessed Comments Unknown Sex and Gender Information Value Date Recorded Sex Assigned at Not on file Legal Sex Female 2:59 AM COMPUTED TOMOGRAPHY SCANNER OPERATOR Gender Identity Not on file Sexual Orientation Not on file documented as of this encounter Plan of Treatment Not on file documented as of this encounter Visit Diagnoses Diagnosis Pneumonia, organism unspecified(486)- Primary Pneumonia, organism unspecified Shortness of breath Allergy, unspecified not elsewhere classified documented in this encounter Care Teams Booth Manager Relationship Specialty Start Date End Date Ha Manuel DO [address] [place] [address] PCP - General 09/08/09 documented as of this encounter
--- OUTSIDE RECORDS SUMMARY | 2025-01-23 11:12 | XMS_ITS | Encounter Summary ---
Author Organization [facility] Address [address] [place] [address] Care Team Providers Care Casting Wheel Operator Name Role Phone Ha Manuel DO Primary Care Provider [phone] Encounter Details Date Type Department Care Team (Latest Contact Info) Description 05/25/2002 Outpatient Historical [facility] [address] [phone] Alisha Villa MD [address] [place] [phone] SCIATICA (Primary Dx) Social History Tobacco Use Types Packs/Day Years Used Date Smoking Tobacco: Never Assessed Comments Unknown Sex and Gender Information Value Date Recorded Sex Assigned at Not on file Legal Sex Female 2:59 AM RN TRIAGE Gender Identity Not on file Sexual Orientation Not on file documented as of this encounter Plan of Treatment Not on file documented as of this encounter Visit Diagnoses Diagnosis Sciatica- Primary documented in this encounter Care Teams Casting Wheel Operator Relationship Specialty Start Date End Date Ha Manuel DO [address] [place] [phone] PCP - General 09/08/09 documented as of this encounter
--- OUTSIDE RECORDS SUMMARY | 2025-01-23 11:12 | XMS_ITS | Encounter Summary ---
Author Organization [facility] Address [address] Attn: [place] [address] Care Team Providers Care Language Instructor Name Role Phone Ha Manuel DO Primary Care Provider [phone] Encounter Details Date Type Department Care Team (Late st Contact Info) Description 02/16/2000 Outpatient Historical Jacob Luevano MD NO ADDRESS ON FILE Social History Tobacco Use Types Packs/Day Years Used Date Smoking Tobacco: Never Assessed Comments Unknown Sex and Gender Information Value Date Recorded Sex Assigned at Not on file Legal Sex Female 2:59 AM TRANSFORMER MAKER Gender Identity Not on file Sexual Orientation Not on file documented as of this encounter Plan of Treatment Not on file documented as of this encounter Visit Diagnoses Not on filedocumented in this encounter Care Teams Language Instructor Relationship Specialty Start Date End Date Ha Manuel DO [address] [place] [address] PCP - General 09/08/09 documented as of this encounter
--- OUTSIDE RECORDS SUMMARY | 2025-01-23 11:12 | XMS_ITS | Encounter Summary ---
Author Organization [facility] Address [address] [place] [address] Care Team Providers Care Strategic Marketing Associate Name Role Phone Ha Manuel DO Primary Care Provider [phone] Encounter Details Date Type Department Care Team (Latest Contact Info) Description 06/29/[address] [facility] Medicine [address], [place] [phone] Mahamed Damian MD [address] [place] [address] ACUTE BRONCHITIS (Primary Dx); TRACHEA/BRONCHUS DIS NEC Social History Tobacco Use Types Packs/Day Years Used Date Smoking Tobacco: Never Assessed Comments Unknown Sex and Gender Information Value Date Recorded Sex Assigned at Not on file Legal Sex Female 2:59 AM WEED SPRAYER Gender Identity Not on file Sexual Orientation Not on file documented as of this encounter Plan of Treatment Not on file documented as of this encounter Visit Diagnoses Diagnosis Acute bronchitis- Primary Other diseases of trachea and bronchus, not elsewhere classified documented in this encounter Care Teams Strategic Marketing Associate Relationship Specialty Start Date End Date Ha Manuel DO [address] [place] [address] PCP - General 09/08/09 documented as of this encounter
--- OUTSIDE RECORDS SUMMARY | 2025-01-23 11:12 | XMS_ITS | Encounter Summary ---
Author Organization [facility] Address [address] [place] [address] Care Team Providers Care Valuation Consultant Name Role Phone Ha Manuel DO Primary Care Provider [phone] Encounter Details Date Type Department Care Team (Latest Contact Info) Description 04/28/2001 Outpatient Historical [facility] Medicine [address], [place] [phone] Mahamed Damian MD [address] [place] [address] ACUTE TONSILLITIS (Primary Dx) Social History Tobacco Use Types Packs/Day Years Used Date Smoking Tobacco: Never Assessed Comments Unknown Sex and Gender Information Value Date Recorded Sex Assigned at Not on file Legal Sex Female 2:59 AM AUTOMOTIVE ELECTRICIAN HELPER Gender Identity Not on file Sexual Orientation Not on file documented as of this encounter Plan of Treatment Not on file documented as of this encounter Visit Diagnoses Diagnosis Acute tonsillitis- Primary documented in this encounter Care Teams Valuation Consultant Relationship Specialty Start Date End Date Ha Manuel DO [address] [place] [address] PCP - General 09/08/09 documented as of this encounter
--- OUTSIDE RECORDS SUMMARY | 2025-01-23 11:12 | XMS_ITS | Encounter Summary ---
Author Organization [facility] Address [address] [place] [address] Care Team Providers Care Communications Programmer Name Role Phone Ha Manuel DO Primary Care Provider [phone] Encounter Details Date Type Department Care Team (Latest Contact Info) Description 11/22/2003 Outpatient Historical [facility] [address] [place] [address] AMBULANCE, [facility] HEADACHE (Primary Dx) Social History Tobacco Use Types Packs/Day Years Used Date Smoking Tobacco: Never Assessed Comments Unknown Sex and Gender Information Value Date Recorded Sex Assigned at Not on file Legal Sex Female 2:59 AM BROACHING MACHINE SET UP OPERATOR Gender Identity Not on file Sexual Orientation Not on file documented as of this encounter Plan of Treatment Not on file documented as of this encounter Visit Diagnoses Diagnosis Headache(784.0)- Primary Headache documented in this encounter Care Teams Communications Programmer Relationship Specialty Start Date End Date Ha Manuel DO [address] [place] [address] PCP - General 09/08/09 documented as of this encounter
--- OUTSIDE RECORDS SUMMARY | 2025-01-23 11:12 | XMS_ITS | Encounter Summary ---
Author Organization [facility] Address [address] Attn: [place] [address] Care Team Providers Care Material Control Analyst Name Role Phone Ha Manuel DO Primary Care Provider [phone] Encounter Details Date Type Department Care Team (Late st Contact Info) Description 01/13/2000 Outpatient Historical Non-Staff, Physician NO ADDRESS ON FILE Social History Tobacco Use Types Packs/Day Years Used Date Smoking Tobacco: Never Assessed Comments Unknown Sex and Gender Information Value Date Recorded Sex Assigned at Not on file Legal Sex Female 2:59 AM HAND SALTER Gender Identity Not on file Sexual Orientation Not on file documented as of this encounter Plan of Treatment Not on file documented as of this encounter Visit Diagnoses Not on filedocumented in this encounter Care Teams Material Control Analyst Relationship Specialty Start Date End Date Ha Manuel DO [address] [place] [address] PCP - General 09/08/09 documented as of this encounter
--- OUTSIDE RECORDS SUMMARY | 2025-01-23 11:12 | XMS_ITS | Encounter Summary ---
Author Organization [facility] Address [address] [place] [address] Care Team Providers Care Wet Process Operator Name Role Phone Ha Manuel DO Primary Care Provider [phone] Encounter Details Date Type Department Care Team (Latest Contact Info) Description 10/28/2000 Outpatient Historical [facility] [address], [place] [phone] Mahamed Damian MD [address] [place] [address] Other acne (Primary Dx) Social History Tobacco Use Types Packs/Day Years Used Date Smoking Tobacco: Never Assessed Comments Unknown Sex and Gender Information Value Date Recorded Sex Assigned at Not on file Legal Sex Female 2:59 AM MECHANISM INSPECTOR Gender Identity Not on file Sexual Orientation Not on file documented as of this encounter Plan of Treatment Not on file documented as of this encounter Visit Diagnoses Diagnosis Other acne- Primary documented in this encounter Care Teams Wet Process Operator Relationship Specialty Start Date End Date Ha Manuel DO [address] [place] [address] PCP - General 09/08/09 documented as of this encounter
--- OUTSIDE RECORDS SUMMARY | 2025-01-23 11:12 | XMS_ITS | Encounter Summary ---
Author Organization [facility] Address [address] [place] [address] Care Team Providers Care Shot Core Drill Operator Helper Name Role Phone Ha Manuel DO Primary Care Provider [phone] Encounter Details Date Type Department Care Team (Late st Contact Info) Description 04/04/1998 Outpatient Historical [facility] Medicine [address] [phone] Social History Tobacco Use Types Packs/Day Years Used Date Smoking Tobacco: Never Assessed Comments Unknown Sex and Gender Information Value Date Recorded Sex Assigned at Not on file Legal Sex Female 2:59 AM CHIEF BANK EXAMINER Gender Identity Not on file Sexual Orientation Not on file documented as of this encounter Plan of Treatment Not on file documented as of this encounter Visit Diagnoses Not on filedocumented in this encounter Care Teams Shot Core Drill Operator Helper Relationship Specialty Start Date End Date Ha Manuel DO [address] [place] [address] PCP - General 09/08/09 documented as of this encounter
--- OUTSIDE RECORDS SUMMARY | 2025-01-23 11:12 | XMS_ITS | Encounter Summary ---
Author Organization [facility] Address [address] [place] [address] Care Team Providers Care Hr Shared Services Consultant Name Role Phone Ha Manuel DO Primary Care Provider [phone] Encounter Details Date Type Department Care Team (Latest Contact Info) Description 07/17/2001 Outpatient Historical [address] [phone] Ashley Hilario MD [address] [place] [address] Excessive menstruation (Primary Dx); TOBACCO USE DISORDER Social History Tobacco Use Types Packs/Day Years Used Date Smoking Tobacco: Never Assessed Comments Unknown Sex and Gender Information Value Date Recorded Sex Assigned at Not on file Legal Sex Female 2:59 AM KETTLE CHIPPER Gender Identity Not on file Sexual Orientation Not on file documented as of this encounter Plan of Treatment Not on file documented as of this encounter Visit Diagnoses Diagnosis Excessive menstruation- Primary Excessive or frequent menstruation Tobacco use disorder documented in this encounter Care Teams Hr Shared Services Consultant Relationship Specialty Start Date End Date Ha Manuel DO [address] [place] [address] PCP - General 09/08/09 documented as of this encounter
--- OUTSIDE RECORDS SUMMARY | 2025-01-23 11:12 | XMS_ITS | Encounter Summary ---
Author Organization [facility] Address [address] [place] [address] Care Team Providers Care Fruit Loader Machine Operator Name Role Phone Ha Manuel DO Primary Care Provider [phone] Encounter Details Date Type Department Care Team (Latest Contact Info) Description 06/03/2002 Outpatient Historical [facility] Medicine [address] [phone] Mahamed Damian MD [address] [place] [address] Lateral epicondylitis (Primary Dx); BURSITIS NEC Social History Tobacco Use Types Packs/Day Years Used Date Smoking Tobacco: Never Assessed Comments Unknown Sex and Gender Information Value Date Recorded Sex Assigned at Not on file Legal Sex Female 2:59 AM INSTRUCTIONAL MATERIAL DIRECTOR Gender Identity Not on file Sexual Orientation Not on file documented as of this encounter Plan of Treatment Not on file documented as of this encounter Visit Diagnoses Diagnosis Lateral epicondylitis- Primary Lateral epicondylitis of elbow Other bursitis disorders documented in this encounter Care Teams Fruit Loader Machine Operator Relationship Specialty Start Date End Date Ha Manuel DO [address] [place] [address] PCP - General 09/08/09 documented as of this encounter
--- OUTSIDE RECORDS SUMMARY | 2025-01-23 11:12 | XMS_ITS | Encounter Summary ---
Author Organization [facility] Address [address] [place] [address] Care Team Providers Care Team Otr Truck Driver Name Role Phone Ha Manuel DO Primary Care Provider [phone] Encounter Details Date Type Department Care Team (Latest Contact Info) Description 07/31/2000 Outpatient Historical [facility] Medicine [address] [phone] Mahamed Damian MD [address] [place] [address] Symptomatic menopausal or female climacteric states (Primary Dx) Social History Tobacco Use Types Packs/Day Years Used Date Smoking Tobacco: Never Assessed Comments Unknown Sex and Gender Information Value Date Recorded Sex Assigned at Not on file Legal Sex Female 2:59 AM LIFE TEACHER Gender Identity Not on file Sexual Orientation Not on file documented as of this encounter Plan of Treatment Not on file documented as of this encounter Visit Diagnoses Diagnosis Symptomatic menopausal or female climacteric states- Primary documented in this encounter Care Teams Team Otr Truck Driver Relationship Specialty Start Date End Date Ha Manuel DO [address] [place] [address] PCP - General 09/08/09 documented as of this encounter
--- OUTSIDE RECORDS SUMMARY | 2025-01-23 11:12 | XMS_ITS | Encounter Summary ---
Author Organization [facility] Address [address] [place] [address] Care Team Providers Care Special Machine Operator Name Role Phone Ha Manuel DO Primary Care Provider [phone] Encounter Details Date Type Department Care Team (Latest Contact Info) Description 11/19/2003 Outpatient Historical [address] [phone] Ashley Hilario MD [address] [place] [address], [address] INSOMNIA NEC (Primary Dx); Venereal disease contact; GENERALIZED ANXIETY DIS Social History Tobacco Use Types Packs/Day Years Used Date Smoking Tobacco: Never Assessed Comments Unknown Sex and Gender Information Value Date Recorded Sex Assigned at Not on file Legal Sex Female 2:59 AM HIGH SCHOOL LIBRARY MEDIA SPECIALIST Gender Identity Not on file Sexual Orientation Not on file documented as of this encounter Plan of Treatment Not on file documented as of this encounter Visit Diagnoses Diagnosis Insomnia, unspecified- Primary Venereal disease contact Contact with or exposure to venereal diseases Generalized anxiety disorder documented in this encounter Care Teams Special Machine Operator Relationship Specialty Start Date End Date Ha Manuel DO [address] [place] [address] PCP - General 09/08/09 documented as of this encounter
--- OUTSIDE RECORDS SUMMARY | 2025-01-23 11:12 | XMS_ITS | Encounter Summary ---
Author Organization [facility] Address [address] [place] [address] Care Team Providers Care Coverage Specialist Name Role Phone Ha Manuel DO Primary Care Provider [phone] Encounter Details Date Type Department Care Team (Latest Contact Info) Description 05/24/2004 Outpatient Historical [facility] Medicine [address] [phone] Alisha Villa MD [address] [place] [phone] ACUTE PHARYNGITIS (Primary Dx); UNSPECIFIED VIRAL INFECTION Social History Tobacco Use Types Packs/Day Years Used Date Smoking Tobacco: Never Assessed Comments Unknown Sex and Gender Information Value Date Recorded Sex Assigned at Not on file Legal Sex Female 2:59 AM MOLDING MACHINE TENDER Gender Identity Not on file Sexual Orientation Not on file documented as of this encounter Plan of Treatment Not on file documented as of this encounter Visit Diagnoses Diagnosis Acute pharyngitis- Primary Unspecified viral infection, in conditions classified elsewhere and of unspecified site documented in this encounter Care Teams Coverage Specialist Relationship Specialty Start Date End Date Ha Manuel DO [address] [place] [address] PCP - General 09/08/09 documented as of this encounter
--- OUTSIDE RECORDS SUMMARY | 2025-01-23 11:12 | XMS_ITS | Encounter Summary ---
Author Organization [facility] Address [address] [place] [address] Care Team Providers Care Doughnut Maker Name Role Phone Ha Manuel DO Primary Care Provider [phone] Encounter Details Date Type Department Care Team (Latest Contact Info) Description 06/29/2002 Outpatient Historical [facility] Medicine [place] [address] [phone] Mahamed Damian MD [address] [place] [address] OBSTR CHR BRONCHITIS W AC EXACERB (CMS/HCC) (Primary Dx); UNSPECIFIED VIRAL INFECTION Social History Tobacco Use Types Packs/Day Years Used Date Smoking Tobacco: Never Assessed Comments Unknown Sex and Gender Information Value Date Recorded Sex Assigned at Not on file Legal Sex Female 2:59 AM LIBRARY SPECIALIST Gender Identity Not on file Sexual Orientation Not on file documented as of this encounter Plan of Treatment Not on file documented as of this encounter Visit Diagnoses Diagnosis Obstructive chronic bronchitis with exacerbation (CMS/HCC)- Primary Obstructive chronic bronchitis with exacerbation Unspecified viral infection, in conditions classified elsewhere and of unspecified site documented in this encounter Care Teams Doughnut Maker Relationship Specialty Start Date End Date Ha Manuel DO [address] [place] [address] PCP - General 09/08/09 documented as of this encounter
--- OUTSIDE RECORDS SUMMARY | 2025-01-23 11:12 | XMS_ITS | Encounter Summary ---
Author Organization [facility] Address [address] [place] [address] Care Team Providers Care Retail Merchandising Coordinator Name Role Phone Ha Manuel DO Primary Care Provider [phone] Encounter Details Date Type Department Care Team (Late st Contact Info) Description 05/11/1998 Outpatient Historical [facility] Medicine [address] [address] Social History Tobacco Use Types Packs/Day Years Used Date Smoking Tobacco: Never Assessed Comments Unknown Sex and Gender Information Value Date Recorded Sex Assigned at Not on file Legal Sex Female 2:59 AM HEARING OFFICER Gender Identity Not on file Sexual Orientation Not on file documented as of this encounter Plan of Treatment Not on file documented as of this encounter Visit Diagnoses Not on filedocumented in this encounter Care Teams Retail Merchandising Coordinator Relationship Specialty Start Date End Date Ha Manuel DO [address] [place] [address] PCP - General 09/08/09 documented as of this encounter
--- OUTSIDE RECORDS SUMMARY | 2025-01-23 11:12 | XMS_ITS | Encounter Summary ---
Author Organization [facility] Address [address] [place] [address] Care Team Providers Care Concession Stand Attendant Name Role Phone Ha Manuel DO Primary Care Provider [phone] Encounter Details Date Type Department Care Team (Latest Contact Info) Description 04/27/2004 Outpatient Historical [facility] Medicine [address] [phone] Alisha Villa MD [address] [place] [phone] DERMATITIS NOS (Primary Dx) Social History Tobacco Use Types Packs/Day Years Used Date Smoking Tobacco: Never Assessed Comments Unknown Sex and Gender Information Value Date Recorded Sex Assigned at Not on file Legal Sex Female 2:59 AM ROTARY PEEL OVEN TENDER Gender Identity Not on file Sexual Orientation Not on file documented as of this encounter Plan of Treatment Not on file documented as of this encounter Visit Diagnoses Diagnosis Contact dermatitis and other eczema, due to unspecified cause- Primary documented in this encounter Care Teams Concession Stand Attendant Relationship Specialty Start Date End Date Ha Manuel DO [address] [place] [address] PCP - General 09/08/09 documented as of this encounter
--- OUTSIDE RECORDS SUMMARY | 2025-01-23 11:12 | XMS_ITS | Encounter Summary ---
Author Organization [facility] Address [address] [place] [address] Care Team Providers Care Desulfurizer Operator Name Role Phone Ha Manuel DO Primary Care Provider [phone] Encounter Details Date Type Department Care Team (Latest Contact Info) Description 08/29/1999 Outpatient Historical [facility] Medicine [address] [phone] Alisha Villa MD [address] [place] [phone] Allergic rhinitis, cause unspecified (Primary Dx); Cough Social History Tobacco Use Types Packs/Day Years Used Date Smoking Tobacco: Never Assessed Comments Unknown Sex and Gender Information Value Date Recorded Sex Assigned at Not on file Legal Sex Female 2:59 AM PHYSICIAN REPRESENTATIVE Gender Identity Not on file Sexual Orientation Not on file documented as of this encounter Plan of Treatment Not on file documented as of this encounter Visit Diagnoses Diagnosis Allergic rhinitis, cause unspecified- Primary Cough documented in this encounter Care Teams Desulfurizer Operator Relationship Specialty Start Date End Date Ha Manuel DO [address] [place] [address] PCP - General 09/08/09 documented as of this encounter
--- OUTSIDE RECORDS SUMMARY | 2025-01-23 11:12 | XMS_ITS | Encounter Summary ---
Author Organization [facility] Address [address] [place] [address] Care Team Providers Care Gear Tooth Grinding Machine Operator Name Role Phone Ha Manuel DO Primary Care Provider [phone] Encounter Details Date Type Department Care Team (Latest Contact Info) Description 07/29/2003 Outpatient Historical [facility] Medicine [address] [phone] Alisha Villa MD [address] [place] [phone] ROSACEA (Primary Dx); OTHER MALAISE AND FATIGUE; NONINFECT VAG LEUKORRHEA; Gynecologic examination Social History Tobacco Use Types Packs/Day Years Used Date Smoking Tobacco: Never Assessed Comments Unknown Sex and Gender Information Value Date Recorded Sex Assigned at Not on file Legal Sex Female 2:59 AM SENIOR WAREHOUSE CLERK Gender Identity Not on file Sexual Orientation Not on file documented as of this encounter Plan of Treatment Not on file documented as of this encounter Visit Diagnoses Diagnosis Rosacea- Primary Other malaise and fatigue Leukorrhea, not specified as infective Gynecologic examination Gynecological examination documented in this encounter Care Teams Gear Tooth Grinding Machine Operator Relationship Specialty Start Date End Date Ha Manuel DO [address] [place] [address] PCP - General 09/08/09 documented as of this encounter
--- OUTSIDE RECORDS SUMMARY | 2025-01-23 11:12 | XMS_ITS | Encounter Summary ---
Author Organization [facility] Address [address] [place] [address] Care Team Providers Care Asset Coordinator Name Role Phone Ha Manuel DO Primary Care Provider [phone] Encounter Details Date Type Department Care Team (Latest Contact Info) Description 10/15/2001 Outpatient Historical [facility] Medicine [address] [phone] Alisha Villa MD [address] [place] [address] VAGINITIS NOS (Primary Dx); FEMALE STRESS INCONTINENCE Social History Tobacco Use Types Packs/Day Years Used Date Smoking Tobacco: Never Assessed Comments Unknown Sex and Gender Information Value Date Recorded Sex Assigned at Not on file Legal Sex Female 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
--- OUTSIDE RECORDS SUMMARY | 2025-01-23 11:12 | XMS_ITS | Encounter Summary ---
Author Organization [facility] Address [address] [place] [address] Care Team Providers Care Manager Architecture Name Role Phone Ha Manuel DO Primary Care Provider [phone] Encounter Details Date Type Department Care Team (Latest Contact Info) Description 05/10/2004 Outpatient Historical 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
--- OUTSIDE RECORDS SUMMARY | 2025-01-23 11:12 | XMS_ITS | Encounter Summary ---
Author Organization [facility] Address [address] [place] [address] Care Team Providers Care Facilities And Grounds Director Name Role Phone Ha Manuel DO Primary Care Provider [phone] Encounter Details Date Type Department Care Team (Latest Contact Info) Description 09/13/2003 Outpatient Historical [address] [phone] Ashley Hilario MD [address] [place] [address] JOINT PAIN-L/LEG (Primary Dx); OTHER MALAISE AND FATIGUE; MYALGIA AND MYOSITIS NOS Social History Tobacco Use Types Packs/Day Years Used Date Smoking Tobacco: Never Assessed Comments Unknown Sex and Gender Information Value Date Recorded Sex Assigned at Not on file Legal 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
--- OUTSIDE RECORDS SUMMARY | 2025-01-23 11:12 | XMS_ITS | Encounter Summary ---
Author Organization [facility] Address [address] [place] [address] Care Team Providers Care Consumer Studies Professor Name Role Phone Ha Manuel DO Primary Care Provider [phone] Encounter Details Date Type Department Care Team (Latest Contact Info) Description 01/05/2000 Outpatient Historical [facility] Medicine [address] [phone] Alisha Villa MD [address] [place] [phone] Cervicalgia (Primary Dx); Pain in joint, shoulder region Social History Tobacco Use Types Packs/Day Years Used Date Smoking Tobacco: Never Assessed Comments Unknown Sex and Gender Information Value Date Recorded Sex Assigned at Not on file 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
--- OUTSIDE RECORDS SUMMARY | 2025-01-23 11:12 | XMS_ITS | Encounter Summary ---
Author Organization [facility] Address [address] [place] [address] Care Team Providers Care Lease Administration Analyst Name Role Phone Ha Manuel DO Primary Care Provider [phone] Encounter Details Date Type Department Care Team (Latest Contact Info) Description 03/09/2002 Outpatient Historical [facility] [place] Medicine [address] [phone] Mahamed Damian MD [address] [place] [address] SPRAIN NOS (Primary Dx) Social History Tobacco Use Types Packs/Day Years Used Date Smoking Tobacco: Never Assessed Comments Unknown Sex and Gender Information Value Date Recorded Sex Assigned at Not on file Legal Sex Female 2:59 AM OFFENSIVE COORDINATOR Gender Identity Not on file Sexual Orientation Not on file documented as of this encounter Plan of Treatment Not on file documented as of this encounter Visit Diagnoses Diagnosis Unspecified site of sprain and strain- Primary documented in this encounter Care Teams Lease Administration Analyst Relationship Specialty Start Date End Date Ha Manuel DO [address] [place] [address] PCP - General 09/08/09 documented as of this encounter
--- OUTSIDE RECORDS SUMMARY | 2025-01-23 11:12 | XMS_ITS | Encounter Summary ---
Author Organization [facility] Address [address] [place] [address] Care Team Providers Care Sponge Packer Name Role Phone Ha Manuel DO Primary Care Provider [phone] Encounter Details Date Type Department Care Team (Latest Contact Info) Description 12/22/2002 Outpatient Historical [facility] [address] [place] [address] AMBULANCE, [facility] CHEST PAIN NOS (Primary Dx) Social History Tobacco Use Types Packs/Day Years Used Date Smoking Tobacco: Never Assessed Comments Unknown Sex and Gender Information Value Date Recorded Sex Assigned at Not on file Legal Sex Female 2:59 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
--- OUTSIDE RECORDS SUMMARY | 2025-01-23 11:12 | XMS_ITS | Encounter Summary ---
Author Organization [facility] Address [address] [place] [address] Care Team Providers Care Inspector And Unloader Name Role Phone Ha Manuel DO Primary Care Provider [phone] Encounter Details Date Type Department Care Team (Latest Contact Info) Description 10/30/2002 Outpatient Historical [facility] Medicine [address] [phone] Mahamed Damian MD [address] [place] [address] MASTODYNIA (Primary Dx) Social History Tobacco Use Types Packs/Day Years Used Date Smoking Tobacco: Never Assessed Comments Unknown Sex and Gender Information Value Date Recorded Sex Assigned at Not on file 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
--- OUTSIDE RECORDS SUMMARY | 2025-01-23 11:12 | XMS_ITS | Encounter Summary ---
Author Organization [facility] Address [address] [place] [address] Care Team Providers Care Guest Laundry Attendant Name Role Phone Ha Manuel DO Primary Care Provider [phone] Encounter Details Date Type Department Care Team (Latest Contact Info) Description 02/16/2000 Outpatient Historical [facility] Gen Spec [facility] [place] [address] [facility] [address] [place] [address] Jacob Luevano MD NO ADDRESS ON FILE Calculus of gallbladder without mention of cholecystitis or obstruction (Primary Dx) Social History Tobacco Use Types Packs/Day Years Used Date Smoking Tobacco: Never Assessed Comments Unknown Sex and Gender Information Value Date Recorded Sex Assigned at Not on file Legal Sex Female 2:59 AM TRIAGE 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
--- OUTSIDE RECORDS SUMMARY | 2025-01-23 11:12 | XMS_ITS | Encounter Summary ---
Author Organization [facility] Address [address] [place] [address] Care Team Providers Care Vessel Traffic Officer Name Role Phone Ha Manuel DO Primary Care Provider [phone] Encounter Details Date Type Department Care Team (Latest Contact Info) Description 02/13/2001 Outpatient Historical [facility] Medicine [address], [place] [phone] Mahamed Damian MD [address] [place] [address] Sprain of neck (Primary Dx); Sprain of unspecified site of back Social History Tobacco Use Types Packs/Day Years Used Date Smoking Tobacco: Never Assessed Comments Unknown Sex and Gender Information Value Date Recorded Sex Assigned at Not on file Legal Sex Female 2:59 AM DELIVERY LEAD Gender Identity Not on file Sexual Orientation Not on file documented as of this encounter Plan of Treatment Not on file documented as of this encounter Visit Diagnoses Diagnosis Sprain of neck- Primary Neck sprain and strain Sprain of unspecified site of back documented in this encounter Care Teams Vessel Traffic Officer Relationship Specialty Start Date End Date Ha Manuel DO [address] [place] [address] PCP - General 09/08/09 documented as of this encounter
--- OUTSIDE RECORDS SUMMARY | 2025-01-23 11:12 | XMS_ITS | Encounter Summary ---
Author Organization [facility] Address [address] [place] [address] Care Team Providers Care Optometrist Name Role Phone Ha Manuel DO Primary Care Provider [phone] Encounter Details Date Type Department Care Team (Late st Contact Info) Description 11/19/2003 Outpatient Historical [address] [phone] Ashley Hilario MD [address] [place] [address] Social History Tobacco Use Types Packs/Day Years Used Date Smoking Tobacco: Never Assessed Comments Unknown Sex and Gender Information Value Date Recorded Sex Assigned at Not on file Legal Sex Female 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
--- OUTSIDE RECORDS SUMMARY | 2025-01-23 11:12 | XMS_ITS | Encounter Summary ---
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
--- OUTSIDE RECORDS SUMMARY | 2025-01-23 11:12 | XMS_ITS | Encounter Summary ---
Author Organization [facility] Address [address] [place] [address] Care Team Providers Care Executive Producer Promos Name Role Phone Ha Manuel DO Primary Care Provider [phone] Encounter Details Date Type Department Care Team (Latest Contact Info) Description 02/21/2000 Outpatient Historical [address] [phone] Mahamed Damian MD [address] [place] [address] Acute frontal sinusitis (Primary Dx); Acute bronchitis Social History Tobacco Use Types Packs/Day Years Used Date Smoking Tobacco: Never Assessed Comments Unknown Sex and Gender Information Value Date Recorded Sex Assigned at Not on file Legal Sex Female 2:59 AM SKY CAP Gender Identity Not on file Sexual Orientation Not on file documented as of this encounter Plan of Treatment Not on file documented as of this encounter Visit Diagnoses Diagnosis Acute frontal sinusitis- Primary Acute bronchitis documented in this encounter Care Teams Executive Producer Promos Relationship Specialty Start Date End Date Ha Manuel DO [address] [place] [address] PCP - General 09/08/09 documented as of this encounter
--- OUTSIDE RECORDS SUMMARY | 2025-01-23 11:12 | XMS_ITS | Encounter Summary ---
Author Organization [facility] Address [address] [place] [address] Care Team Providers Care Paper And Pulp Mill Operator Name Role Phone Ha Manuel DO Primary Care Provider [phone] Encounter Details Date Type Department Care Team (Latest Contact Info) Description 01/23/2000 Outpatient Historical [address] [phone] Mahamed Damian MD [address] [place] [address] Pneumonia, organism unspecified(486) (Primary Dx); Acute frontal sinusitis Social History Tobacco Use Types Packs/Day Years Used Date Smoking Tobacco: Never Assessed Comments Unknown Sex and Gender Information Value Date Recorded Sex Assigned at Not on file Legal Sex Female 2:59 AM CRISIS 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
--- OUTSIDE RECORDS SUMMARY | 2025-01-23 11:12 | XMS_ITS | Encounter Summary ---
Author Organization [facility] Address [address] [place] [address] Care Team Providers Care Creative Services Writer Name Role Phone Ha Manuel DO Primary Care Provider [phone] Encounter Details Date Type Department Care Team (Latest Contact Info) Description 12/23/2002 Outpatient Historical [facility] Medicine [address], [place] [id number] Mahamed Damian MD [address] [place] [address] STOMACH FUNCTION DIS NEC (Primary Dx); SPRAIN SHOULDER/ARM NOS Social History Tobacco Use Types Packs/Day Years Used Date Smoking Tobacco: Never Assessed Comments Unknown Sex and Gender Information Value Date Recorded Sex Assigned at Not on file Legal Sex Female 2:59 AM BUYING INTERN Gender Identity Not on file Sexual Orientation Not on file documented as of this encounter Plan of Treatment Not on file documented as of this encounter Visit Diagnoses Diagnosis Dyspepsia and other specified disorders of function of stomach- Primary Sprain and strain of unspecified site of shoulder and upper arm documented in this encounter Care Teams Creative Services Writer Relationship Specialty Start Date End Date Ha Manuel DO [address] [place] [id number] PCP - General 09/08/09 documented as of this encounter
--- NOTE | 2025-01-23 11:23 | ED_ITS ---
HPI - Arrhythmia/Palpitations 2 General: Chief Complaint: Arrhythmia/Palpitations Stated Complaint: hb varying wildly Time Seen by Provider: 01/23/25 11:23 History of Present Illness: 69-year-old female with a history of obe sity, hyperlipidemia, GERD, hypertension, COPD, atrial fibrillation, aortic stenosis, pulmonary hypertension and GERD who presents to the emergency room with palpitations and shortness of breath. Says over the last 2 days her heart has been racing and she has become much more short of breath. Some chest tightness. No nausea or vomiting. No abdominal pain. No dysuria. No altered mental status. No focal motor deficits. She is not on any anticoagulation. Related Data Home Medications ?Medication ?Instructions ?Recorded ?Confirmed fluticasone propionate 50 1 spray intranasal DAILY PRN 02/11/24 01/23/25 mcg/actuation nasal allergies spray,suspension (Allergy Relief (fluticasone)) allopurinol 100 mg tablet 100 mg PO DAILY 01/23/2503/11 amlodipine 10 mg tablet 10 mg PO DAILY 01/23/2503/11 fexofenadine 180 mg tablet 180 mg PO DAILY PRN allergi es 01/23/25 01/23/25 ipratropium 20 mcg-albuterol 100 1 puff inhalation Q4H PRN 01/23/25 01/23/25 mcg/actuation mist for inhalation Shortness Of Breath (Combivent Respimat) Previous Rx's ?Medication ?Instructions ?Recorded diaper,brief,adult,disposable #90 ea 05/05/24 ([employer]wear For Women XL) furosemide 20 mg tablet (Lasix) 20 mg PO QAM 90 days # 90 tabs 10/27/24 losartan 100 1 tab PO DAILY 90 days #90 t abs 10/27/24 mg-hydrochlorothiazide 25 mg tablet pantoprazole 40 mg tablet,delayed 40 mg PO DAILY 90 da ys #90 tabs 10/27/24 release potassium chloride 20 mEq 20 meq PO BID 90 days #180 t abs 10/27/24 tablet,extended release tizanidine 2 mg tablet 2 mg PO .at bedtime PRN musc le 10/27/24 spasticity #90 tabs metoprolol succinate 25 mg 25 mg PO DAILY 90 days #90 tabs 11/05/24 tablet,extended release 24 hr bisacodyl 10 mg rectal suppository 10 mg AK DAILY PRN constipation 11/12/24 #12 ea lactulose 10 gram/15 mL oral 20 g (30 mL) PO .Q2Hrs AK N 11/12/24 solution constipation #946 mL erythromycin 5 mg/gram (0.5 %) eye 1 applic ophthalmic (eye) BID 7 12/08/24 ointment (3.5 gram tube) days #3.5 grams albuterol sulfate 2.5 mg/3 mL 2.5 mg (3 mL) inhalation Q4H PRN 01/05/25 (0.083 %) solution for nebulization shortness of breat h or wheezing #180 mL albuterol sulfate 90 mcg/actuation 2 puff inhalation Q ID PRN 01/05/25 aerosol inhaler shortness of breath or wheez ing #18 grams fluticasone propionate 230 2 puff inhalation BID #12 g gauri 01/05/25 mcg-salmeterol 21 mcg/actuation HFA inhaler (Advair HFA) Allergies Allergy/AdvReac Type Severity Reaction Status Date / Time codeine AdvReac Mild ADR-Nausea Verified 01/05/25 06:58 doxycycline AdvReac Mild rash Verified 01/05/25 06:58 Review of Systems 2 Narrative: Constitutional symptoms: Negative except as documented in HPI. Skin symptoms: Negative except as documented in HPI. Eye symptoms: Negative except as documented in HPI. ENMT symptoms: Negative except as documented in HPI. Respiratory symptoms: Negative except as documented in HPI. Cardiovascular symptoms: Negative except as documented in HPI. Gastrointestinal symptoms: Negative except as documented in HPI. Genitourinary symptoms: Negative except as documented in HPI. Musculoskeletal symptoms: Negative except as documented in HPI. Neurologic symptoms: Negative except as documented in HPI. Psychiatric symptoms: Negative except as documented in HPI. Endocrine symptoms: Negative except as documented in HPI. PFSH ED 2 PFSH: Medical History (Updated 01/23/25 @ 13:01 by Ina Joyner MD) History of COVID-19 Hyperlipidemia GERD (gastroesophageal reflux disease) Seasonal allergies Essential hypertension COPD (chronic obstructive pulmonary disease) Surgical History S/P cholecystectomy H/O tubal ligation S/P appendectomy Family History Family/Other CAD (coronary artery disease) Stroke Social History Smoking and tobacco/nicotine status: current every day tobacco/nicotine user cigarettes Packs smoked per day: 1.5 Years cigarettes smoked: 52 [ Other cigarette details: currently 1ppd, started at age 16] Second hand smoke exposure: No Alcohol intake: never Substance/Drug Use: never Current gender identity: Female Female Reproductive History: Spontaneous abortions: No Physical Exam 2 Narrative: EXAM NARRATIVE: General: Alert, no acute distress. Skin: Warm, dry. Head: Normocephalic, atraumatic. Neck: Supple, trachea midline. Eye: Extraocular movements are intact. Ears, nose, mouth and throat: mucosa moist. Cardiovascular: Irregular, tachycardic, Normal peripheral perfusion. Respiratory: Lungs are clear to auscultation, respirations are non-labored, breath sounds are equal, Symmetrical chest wall expansion. Gastrointestinal: Soft, Nontender, Non distended Musculoskeletal: Normal ROM, no deformity. Neurological: Alert and oriented, No focal neurological deficit observed. Psychiatric: Cooperative, appropriate mood & affect. Course 2 Vital Signs: Vital signs: Vital Signs Temperature 98.4 F 01/23/25 11:10 Pulse Rate 67 01/23/25 13:00 Respiratory Rate 20 H 01/23/25 13:00 Blood Pressure 105/65 01/23/25 13:00 Pulse Oximetry 89 L 01/23/25 13:00 Oxygen Delivery Me thod Room Air 01/23/25 11:10 MDM - Arrhythmia/Palpitations Medical Decision Making Medical decision making: Differential diagnosis including but not limited to and based on the above HPI, review of systems and physical exam: for patient with palpitations: atrial fibrillation with rapid ventricular response. ventricular tachycardia. sinus tachycardia. PVCs. also concern for underlying issues causing tachycardia. Infection, electrolyte abnormalities and thyroid issues. Orders placed to evaluate differential diagnosis based on the above differential, HPI and physical exam EKG: Time 11:15 AM. Rate 129. Atrial fibrillation with rapid ventricular response, No ST-T changes, no ectopy, This was reviewed and interpreted by myself the ER physician at 11:20 AM Lab Review: Laboratory results were reviewed and interpreted by myself the emergency room physician. No leukocytosis. No anemia. No renal failure. Initial troponin is 11. proBNP is elevated over her baseline at 1066. Chest x-ray: No acute process. No infiltrate. No pneumothorax. This was reviewed and interpreted by myself the emergency room physician. I also reviewed the radiology report. I reviewed the patient's medical record. 69-year-old female with a history of obesity, hyperlipidemia, GERD, hypertension, COPD, atrial fibrillation, aortic stenosis, pulmonary hypertension and GERD Reexamination: Patient remained stable. No increased work of breathing. No altered mental status. No focal motor deficits. Blood pressure had dropped while on diltiazem so I have changed her over to an amiodarone drip. Rate has slowed significantly. She appears to be going back and forth between A-fib and sinus rhythm. Consultation: I spoke with Dr. Rodriguez who is on-call for the hospitalist service who agrees to admission. Assessment and plan: Atrial fibrillation with rapid ventricular response Possible congestive heart failure secondary to prolonged tachycardia ?Initially on diltiazem after diltiazem bolus blood pressures have gotten down into the 80s so this has been stopped and she is placed on amiodarone. Rate is improved quite a bit and she appears to be in and out of sinus now. Blood pressure at admission is 104/60. Heart rate is in the 70s. -I discussed the patient with the hospitalist on-call who is admitting the patient. - Discussed findings and plan with patient. Answered any questions. - All laboratory values were reviewed and interpreted personally by myself, the ER physician - All imaging was reviewed and interpreted personally by myself, the ER physician. - Evaluation and treatment of this problem were appropriate in the emergency setting Lab Data 01/23/25 11:45 01/23/25 11:45 Radiology Impressions Chest X-Ray 01/23/25 12:30 IMPRESSION: No acute findings. Laboratory Results WBC 9.34 10^3/uL (3.29-11.43) 01/23/25 11:45 RBC 5.48 10^6/uL (3.85-5.65) 01/23/25 11:45 Hgb 15.40 g/dL (11.27-16.99) 01/23/25 11:45 Hct 46.6 % (36-47) 01/23/25 11:45 MCV 85.0 fl (85-98) 01/23/25 11:45 MCH 28.1 pg (27-33) 01/23/25 11:45 MCHC 33.0 g/dL (30-55) 01/23/25 11:45 RDW 13.7 % (12.1-15.1) 01/23/25 11:45 Plt Count 345 10^3/cmm (157-399) 01/23/25 11:45 MPV 10.0 fL (7.4-10.4) 01/23/25 11:45 Neut % (Auto) 67.4 % 01/23/25 11:45 Lymph % (Auto) 21.1 % 01/23/25 11:45 [place] % (Auto) 10.0 % 01/23/25 11:45 Eos % (Auto) 0.7 % 01/23/25 11:45 Baso % (Auto) 0.3 % 01/23/25 11:45 Neut # (Auto) 6.29 10^3/uL (1.8-7.7) 01/23/25 11:45 Lymph # (Auto) 2.0 10^3/uL (0.8-4.8) 01/23/25 11:45 [place] # (Auto) 0.9 10^3/uL (0.2-0.9) 01/23/25 11:45 Eos # (Auto) 0.1 10^3/uL (0.0-0.8) 01/23/25 11:45 Baso # (Auto) 0.0 10^3/uL (0.0-0.1) 01/23/25 11:45 Nucleated RBC % (auto) 0 % 01/23/25 11:45 Nucleated RBCs # 0.0 /100WBC 01/23/25 11:45 Sodium 135 mmol/L (136-145) L 01/23/25 11:45 Potassium 3.9 mmol/L (3.5-5.1) 01/23/25 11:45 Chloride 96 mmol/L (98-107) L 01/23/25 11:45 Carbon Dioxide 25 mmol/L (22-29) 01/23/25 11:45 Anion Gap 17.9 (5-19) 01/23/25 11:45 BUN 14 mg/dL (8-23) 01/23/25 11:45 Creatinine 0.8 mg/dL (0.5-0.9) 01/23/25 11:45 GFR Calculation 71.1 mL/min (90-130) L 01/23/25 11:45 Glucose 139 mg/dL (65-115) H 01/23/25 11:45 Calculated Osmolality 283 mOsm/kg (285-295) L 01/23/25 11:45 Calcium 9.6 mg/dL (8.5-10.5) 01/23/25 11:45 Magnesium 1.8 mg/dL (1.7-2.3) 01/23/25 11:45 Total Bilirubin 0.6 mg/dL (0.15-1.2) 01/23/25 11:45 AST 11 U/L (0-32) 01/23/25 11:45 ALT 14 U/L (0-33) 01/23/25 11:45 Alkaline Phosphatase 96 U/L (35-105) 01/23/25 11:45 Troponin T Baseline 11 ng/L (0-10) H 01/23/25 11:45 NT-Pro-B Natriuret Pep 1066 pg/mL (0-125) H 01/23/25 11:45 Total Protein 6.6 g/dL (6.6-8.7) 01/23/25 11:45 Albumin 4.1 g/dL (3.5-5.2) 01/23/25 11:45 Globulin 2.5 g/dL (1.3-4.6) 01/23/25 11:45 TSH 1.15 uIU/mL (0.27-4.20) 01/23/25 11:45 Urine Color Yellow (Yellow) 01/23/25 11:33 Urine Appearance Clear (CLEAR) 01/23/25 11:33 Urine pH 7.0 (5-7) 01/23/25 11:33 Ur Specific [place] 1.006 (1.005-1.030) 01/23/25 11:33 Urine Protein Negative (Negative) 01/23/25 11:33 Urine Glucose (UA) Negative (Normal) 01/23/25 11:33 Urine Ketones Negative (Negative) 01/23/25 11:33 Urine Blood Negative (Negative) 01/23/25 11:33 Urine Nitrate Negative (Negative) 01/23/25 11:33 Urine Bilirubin Negative (Negative) 01/23/25 11:33 Urine Urobilinogen 0.2 mg/dL (Negative) 01/23/25 11:33 Ur Leukocyte Esterase Negative (Negative) 01/23/25 11:33 Urine RBC 0-2 /hpf (0-2) 01/23/25 11:33 Urine WBC 0-5 /hpf (0-5) 01/23/25 11:33 Ur Squamous Epith Cells 0-5 /hpf (0-5) 01/23/25 11:33 Amorphous Sediment Not Reportable 01/23/25 11:33 Urine Bacteria None seen /hpf (NONE) 01/23/25 11:33 Hyaline Casts 0.81 /lpf 01/23/25 11:33 All radiology interpretation(s) finalized by discharge Discharge Plan Discharge Patient Disposition: Admitted As Inpatient Admit Provider: Brenda Rodriguez Clinical Impression: Atrial fibrillation with rapid ventricular response Condition: Stable Coding Level of Care Code ED Half Section Ironer for Jeremie River
[2025-01-23 11:40] LABS: Glucose Urine UA Negative (Normal); Nitrate Urine Negative (Negative); Specific Gravity, Urine 1.006 (1.005-1.030)
[2025-01-23 11:45] LABS: Add Urine Microscopic? YES
[2025-01-23 11:49] LABS: Hematocrit 46.6 % (36-47); Hemoglobin 15.40 g/dL (11.27-16.99); Mean Corpuscular HGB Conc 33.0 g/dL (30-55); Mean Corpuscular Hemoglobin 28.1 pg (27-33); Mean Corpuscular Volume 85.0 fl (85-98); Nucleated Red Blood Cells % 0 %; Platelet Count 345 10^3/cmm (157-399); Red Blood Count 5.48 10^6/uL (3.85-5.65); White Blood Count 9.34 10^3/uL (3.29-11.43)
[2025-01-23] MEDS: dilTIAZem 5 mg/mL SDV 5 mL 10 MG IVP (11:58)
[2025-01-23] MEDS: sodium chloride 0.9% (100 ml) 100 ML (11:58)
[2025-01-23] MEDS: dilTIAZem 100 MG in sodium chloride 0.9% (add-van) 100 ML IV (11:58)
[2025-01-23 12:07] LABS: Troponin(5th) Baseline 11 ng/L (0-10)
[2025-01-23 12:17] LABS: Alanine Aminotransferase 14 U/L (0-33); Albumin Level 4.1 g/dL (3.5-5.2); Alkaline Phosphatase 96 U/L (35-105); Anion Gap 17.9 (5-19); Aspartate Amino Transferase 11 U/L (0-32); Blood Urea Nitrogen 14 mg/dL (8-23); Calcium 9.6 mg/dL (8.5-10.5); Carbon Dioxide 25 mmol/L (22-29); Chloride 96 mmol/L (98-107); Creatinine Clr Calc Pharmacy 73.9275; Globulin 2.5 g/dL (1.3-4.6); Glucose 139 mg/dL (65-115); Magnesium 1.8 mg/dL (1.7-2.3); NT Pro B Type Natriuretic Pept 1066 pg/mL (0-125); Osmolality Calculated 283 mOsm/kg (285-295); Potassium 3.9 mmol/L (3.5-5.1); Sodium 135 mmol/L (136-145); Thyroid Stimulating Hormone 1.15 uIU/mL (0.27-4.20); Total Protein 6.6 g/dL (6.6-8.7)
--- NOTE | 2025-01-23 12:30 | XRR_ITS ---
PROCEDURE INFORMATION: Exam: XR Chest Exam date and time: 01/23/2025 12:36 PM Age: 69 years old Clinical indication: Other: Afib; Additional info: Palpitations; Afib TECHNIQUE: Imaging protocol: Radiologic exam of the chest. Views: 1 view. COMPARISON: CT lung screening [id number] 01/15/2025 1:04 PM FINDINGS: Lungs: Unremarkable. No consolidation. Pleural spaces: Unremarkable. No pleural effusion. No pneumothorax. Heart/Mediastinum: Unremarkable. No cardiomegaly. Bones/joints: Unremarkable. XR/XR chest 1V portable [id number] IMPRESSION: No acute findings.
--- NOTE | 2025-01-23 13:18 | ECG_ITS ---
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
--- NOTE | 2025-01-23 13:34 | ECG_ITS ---
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 Measurements Intervals [place] Rate: 64 P: 156 VA: 176 QRS: 98 QRSD: 82 T: 135 QT: 374 QTc: 386 Interpretive Statements ECTOPIC ATRIAL RHYTHM BORDERLINE RIGHT AXIS DEVIATION [QRS AXIS > 90] POSSIBLE LATERAL MYOCARDIAL INFARCTION , OF INDETERMINATE AGE [30 ms Q WAVE IN I/aVL/V5/V6] Compared to ECG 01/23/2025 11:15:57 Ectopic atrial rhythm now present Myocardial infarct finding now present Atrial fibrillation no longer present ST (T wave) deviation no longer present Electronically Signed On 01-26-2025 08:20:37 CDT by Michael Roman M.D. [email or web address] [id number]
[2025-01-23 14:23] LABS: Troponin 5 2HR 10.74 ng/L (0-10); Troponin 5 2HR Delta -0.26 ABS# (0-10)
--- NOTE | 2025-01-23 15:03 | PC.NURSE ---
received pt from ER Pt telemetry shows Sinus Rhythm in upper 60s to 70s, she is A,Ox4. Denies any chest pain or discomfort, denies any shortness of breath. pt is Amiodarone drip per protocol at 1mg, dr malik verbal order to decrease dose to 0.5 mg and pause drip if pt started to become bradycardic in low 60s. BP-106/55. call light provided to pt. family at bedside.
--- NOTE | 2025-01-23 16:05 | P.HP_ITS ---
Providers/Chief Complaint 2 Admitting Physician: Brenda Rodriguez MD Primary Care Provider: Kamila Marsh MD Chief Complaint: hb varying wildly History of Present Illness Geno Wright is a 69 year old female with a past medical history of COPD, reported history of atrial fibrillation, however she is not on any anticoagulation for the same. Additional history of hypertension, CHF for which patient takes furosemide. She presents to the emergency room today stating that she is feeling unwell for the past 3 days. She has had chest tightness, rapid heart rate. She was recently diagnosed with bronchitis and has recently completed a course of prednisone. She has been using her nebulizer more than usual. Upon presentation to the ER she was found to have A-fib with RVR and has been started on an amiodarone infusion at this time. She was hypotensive with blood pressure 91/64 mmHg at the time of initial presentation. This is now much improved at the time of my assessment to 106/55 mmHg. Patient denies any fever chills increased cough. She is a chronic smoker, is currently smoking 1 pack/day. Patient reports a history of intermittent hypoxia at home with typical O2 sats ranging between 89 to 92%. Review of Systems 2 General: Reports: 10 or more systems reviewed and unremarkable except in HPI and below Const: Denies: fever(s), chills or body aches Eyes: Denies: change in vision, blurry vision or photophobia ENMT: Reports: hoarseness; Denies: throat pain, enlarged tonsils, odynophagia or nasal congestion Card: Denies: chest pain, palpitations, irregular heart rhythm, edema, swelling of feet/ankles, lightheadedness, pre-syncope, dyspnea on exertion or orthopnea Resp: Denies: dyspnea, productive cough, non-productive cough, wheezing, stridor, pain on inspiration, change in phlegm color, hemoptysis or chest congestion GI: Denies: abdominal pain, nausea, vomiting, hematemesis, coffee ground emesis, dysphagia, heartburn, diarrhea, constipation, GI cramping, change in stool character, hematochezia or melena : Denies: flank pain, difficulty voiding, dysuria, urinary frequency, urinary urgency, urinary hesitancy or hematuria Musc: Denies: neck pain, back pain, extremity pain, joint swelling, joint warmth or deformity Neuro: Denies: headache(s), numbness in extremities, weakness in extremities, sensory changes, difficulty walking, frequent falls, dizziness, vertigo, behavioral changes, Slurred speech present or seizure-like activity Psych: Denies: anxiety, depression, suicidal ideation or homicidal ideation Endo: Denies: polyuria, polydipsia, tired all the time, cold intolerance or hot flashes Sanya/Lymph: Denies: easy bruising or easy bleeding Medications/Allergies Home Medications ?Medication ?Instructions ?Recorded ?Confirmed ?Last Taken ?Type fluticasone propionate 50 1 spray intranasal DAILY PRN 02/11/24 01/23/25 Unknown History mcg/actuation nasal allergies spray,suspension (Allergy Relief (fluticasone)) diaper,brief,adult,disposable #90 ea 05/05/24 01/23/25 Unknown Rx ([employer] For Women XL) furosemide 20 mg tablet (Lasix) 20 mg PO QAM 90 days # 90 tabs 10/27/24 01/23/25 01/23/25 Rx losartan 100 1 tab PO DAILY 90 days #90 t abs 10/27/24 01/23/25 01/23/25 Rx mg-hydrochlorothiazide 25 mg tablet pantoprazole 40 mg tablet,delayed 40 mg PO DAILY 90 da ys #90 tabs 10/27/24 01/23/25 01/23/25 Rx release potassium chloride 20 mEq 20 meq PO BID 90 days #180 t abs 10/27/24 01/23/25 01/23/25 Rx tablet,extended release tizanidine 2 mg tablet 2 mg PO .at bedtime PRN musc le 10/27/24 01/23/25 Unknown Rx spasticity #90 tabs metoprolol succinate 25 mg 25 mg PO DAILY 90 days #90 tabs 11/05/24 01/23/25 01/23/25 Rx tablet,extended release 24 hr bisacodyl 10 mg rectal suppository 10 mg ID DAILY PRN constipation 11/12/24 01/23/25 Unknown Rx #12 ea lactulose 10 gram/15 mL oral 20 g (30 mL) PO .Q2Hrs ID N 11/12/24 01/23/25 Unknown Rx solution constipation #946 mL erythromycin 5 mg/gram (0.5 %) eye 1 applic ophthalmic (eye) BID 7 12/08/24 01/23/25 Unknown Rx ointment (3.5 gram tube) days #3.5 grams albuterol sulfate 2.5 mg/3 mL 2.5 mg (3 mL) inhalation Q4H PRN 01/05/25 01/23/25 Unknown Rx (0.083 %) solution for nebulization shortness of breat h or wheezing #180 mL albuterol sulfate 90 mcg/actuation 2 puff inhalation Q ID PRN 01/05/25 01/23/25 Unknown Rx aerosol inhaler shortness of breath or wheez ing #18 grams fluticasone propionate 230 2 puff inhalation BID #12 g gauri 01/05/25 01/23/25 01/23/25 Rx mcg-salmeterol 21 mcg/actuation HFA inhaler (Advair HFA) allopurinol 100 mg tablet 100 mg PO DAILY 01/23/2503/1101/23/25 History amlodipine 10 mg tablet 10 mg PO DAILY 01/23/2503/1101/23/25 History fexofenadine 180 mg tablet 180 mg PO DAILY PRN allergi es 01/23/25 01/23/25 Unknown History ipratropium 20 mcg-albuterol 100 1 puff inhalation Q4H PRN 01/23/25 01/23/25 Unknown History mcg/actuation mist for inhalation Shortness Of Breath (Combivent Respimat) Allergies Allergy/AdvReac Type Severity Reaction Status Date / Time codeine AdvReac Mild ADR-Nausea Verified 01/05/25 06:58 doxycycline AdvReac Mild rash Verified 01/05/25 06:58 PFSH Acute 2 PFSH: Medical History History of COVID-19 Hyperlipidemia GERD (gastroesophageal reflux disease) Seasonal allergies Essential hypertension COPD (chronic obstructive pulmonary disease) Surgical History S/P cholecystectomy H/O tubal ligation S/P appendectomy Family History Family/Other CAD (coronary artery disease) Stroke Social History Smoking and tobacco/nicotine status: current every day tobacco/nicotine user cigarettes Packs smoked per day: 1.5 Years cigarettes smoked: 52 [ Other cigarette details: currently 1ppd, started at age 16] Second hand smoke exposure: No Alcohol intake: never Substance/Drug Use: never Current gender identity: Female Female Reproductive History: Spontaneous abortions: No Vitals/I&O/Wt Last Vital Signs Temp 97.7 F 01/23/25 14:32 Pulse 66 01/23/25 14:32 Resp 28 H 01/23/25 14:32 BP 106/55 01/23/25 14:32 Pulse Ox 92 01/23/25 14:32 O2 Del Method Room Air 01/23/25 14:32 01/23/25 01/23/25 01/23/25 06:59 14:59 22:59 Intake Total 3.833 / 3.833 77.215 / 81.048 Balance 3.833 / 3.833 77.215 / 81.048 Weight last 48 hrs Weight 94.886 kg Weight 94.347 kg Physical Exam 2 Narrative: General: No acute distress, AO x3 HEENT: PERRLA, pupils bilaterally equal and reactive, pallors not present Chest: Scattered wheezing to auscultation on the right side. CVS: S1-S2 regular, no murmurs, no tachycardia, no gallops, no rubs Abdomen: Soft, nontender, no organomegaly, bowel sounds present Neuro: No focal deficits, no facial deformity, AO x3, power 5/5 in all limbs Data 01/23/25 11:45 01/23/25 11:45 A&P Assessment and plan 1. Atrial fibrillation with rapid ventricular response: On January 08, 69-year-old lady with comorbidities as listed above presenting to the hospital today with A-fib with RVR. States she had been feeling chest pressure, palpitations, which prompted the ER visit She was found to be in A-fib with RVR with a heart rate of 130s. She was hypotensive with blood pressure 91/64. She was started on amiodarone infusion. At the time of my assessment her heart rate is currently at 70 bpm, rate controlled in A-fib. Continue amiodarone infusion, reduce rate to 0.5 Overlap with home dose of metoprolol 12.5 mg p.o. twice daily If blood pressure allows, will likely increase the dose of metoprolol for maintenance. Baseline troponin at 11, 2 hours at 10.7. Pending 6-hour trend. Last echocardiogram reviewed from 2023 showing mild aortic valve stenosis MARIELOS of 1.6. EF of 59% without regional wall motion abnormalities. Mild tricuspid tricuspid valve regurgitation was noted along with PASP of 40 mmHg. Mild pulmonary hypertension. Patient is uncertain as to why she is not on anticoagulation. Per review of last cardiology note from November 2024, it is my understanding that A-fib was not a confirmed diagnosis till now. We will start patient on anticoagulation with Lovenox 1 mg/kg subcutaneously every 12 hours with plan to transition to oral Eliquis at the time of discharge. 2. COPD (chronic obstructive pulmonary disease): COPD with recent exacerbation for which patient has just finished a course of prednisone as outpatient Will use Xopenex, budesonide and ipratropium for inpatient scheduled nebulization. Holding off on any steroids for now. Chest x-ray without consolidation. 3. Essential hypertension: Currently blood pressure is on the lower side. Withhold home dose of antihypertensives. Plan: DVT prophylaxis: Starting full dose Lovenox Full code PDMP PDMP Reviewed: Not Reviewed Attestations 2 Medical Necessity Statement*: Greater than 2 midnight stay is anticipated for management of A-fib, need for amiodarone infusion Coding Level of Care Code Acute Code for Chg Fwd High MDM includes number and complexity of problems actively addressed during encounter, amount and/or complexity of data reviewed/ordered and described risk of complication, morbidity or mortality of management as documented Diagnoses Atrial fibrillation with rapid ventricular response I48.91 COPD (chronic obstructive pulmonary disease) J44.9 Essential hypertension I10
[2025-01-23 16:37] LABS: Thyroid Stimulating Hormone 1.03 uIU/mL (0.27-4.20)
--- NOTE | 2025-01-23 17:18 | ECG_ITS ---
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1955 Requested By: Ina Hooper Order Number: [id number] Reading MD: CLARY ORTEGA Measurements Intervals Gary Rate: 69 P: 86 LA: 176 QRS: 76 QRSD: 78 T: 87 QT: 302 QTc: 325 Interpretive Statements SINUS RHYTHM WITH OCCASIONAL SUPRAVENTRICULAR PREMATURE COMPLEXES NONSPECIFIC T-WAVE ABNORMALITY Compared to ECG 01/23/2025 13:34:02 T-wave abnormality now present Ectopic atrial rhythm no longer present Myocardial infarct finding no longer present Electronically Signed On 01-26-2025 20:08:17 CDT by CLARY ORTEGA [email or web address]
[2025-01-23 18:26] LABS: Troponin 5 6HR 13.22 ng/L (0-10); Troponin 5 6HR Delta 2.22 ng/L (0-12)
[2025-01-23 19:39] LABS: Coronavirus 229E,HKU1,NL63,OC4 Not Detected (NOT DETECT); Parainfluenza Virus Type 1 Not Detected (NOT DETECT); Parainfluenza Virus Type 2 Not Detected (NOT DETECT); Parainfluenza Virus Type 3 Not Detected (NOT DETECT); Parainfluenza Virus Type 4 Not Detected (NOT DETECT); SARS-COV-2 Not Detected (NOT DETECT)
[2025-01-24] VITALS (11 sets, daily range): BP systolic 94–136; BP diastolic 48–69; PULSE 57–94; RESP 16–22; TEMP 36.2–36.8; O2SAT 93–99
[2025-01-24 02:34] LABS: Hematocrit 42.6 % (36-47); Hemoglobin 13.80 g/dL (11.27-16.99); Mean Corpuscular HGB Conc 32.4 g/dL (30-55); Mean Corpuscular Hemoglobin 27.8 pg (27-33); Mean Corpuscular Volume 85.9 fl (85-98); Nucleated Red Blood Cells % 0 %; Platelet Count 276 10^3/cmm (157-399); Red Blood Count 4.96 10^6/uL (3.85-5.65); White Blood Count 9.30 10^3/uL (3.29-11.43)
[2025-01-24 02:50] LABS: Alanine Aminotransferase 13 U/L (0-33); Albumin Level 3.7 g/dL (3.5-5.2); Alkaline Phosphatase 79 U/L (35-105); Anion Gap 14.3 (5-19); Aspartate Amino Transferase 9 U/L (0-32); Blood Urea Nitrogen 27 mg/dL (8-23); Calcium 8.9 mg/dL (8.5-10.5); Carbon Dioxide 28 mmol/L (22-29); Chloride 102 mmol/L (98-107); Creatinine Clr Calc Pharmacy 74.1534; Globulin 2.4 g/dL (1.3-4.6); Glucose 106 mg/dL (65-115); Magnesium 1.7 mg/dL (1.7-2.3); Osmolality Calculated 298 mOsm/kg (285-295); Potassium 3.3 mmol/L (3.5-5.1); Sodium 141 mmol/L (136-145); Total Protein 6.1 g/dL (6.6-8.7)
--- NOTE | 2025-01-24 09:22 | USCV_ITS ---
Geno Wright Age: 69 Gender: F : 1955 Exam Date: 01/24/2025 13:14 Ordering Phys: Brenda Rodriguez MD Technologist: Harpreet Wheeler Exam Location: [facility] [place] Indication: a fib, chf BP: 94 / 48 HR: 63 Rhythm: Sinus Technical Quality: Adequate MEASUREMENTS (Male / Female) Normal Values 2D ECHO LV Diastolic Diameter PLAX 3.9 cm 4.2 - 5.9 / 3.9 - 5.3 cm IVS Diastolic Thickness 1.0 cm 0.6 - 1.0 / 0.6 - 0.9 cm IVS Systolic Thickness 1.4 cm LVPW Diastolic Thickness 1.5 cm 0.6 - 1.0 / 0.6 - 0.9 cm LVPW Systolic Thickness 1.3 cm LVOT Diameter 2.0 cm LV Ejection Fraction 2D Teich 51.7 % LV Ejection Fraction MOD 4C 75.4 % LV Ejection Fraction MOD 2C 70.3 % LV Ejection Fraction 2C AL 70.6 % LA Diameter 3.9 cm RA Systolic Volume 4C AL 37.4 ml RA Systolic Volume 4C MOD 33.9 ml LA Sys Volume AL 41.7 cm cubed LA Sys Volume Index AL 17.8 cm cubed/m squared Aorta at Sinotubular Diameter 2.2 cm IVC Diameter 1.4 cm M-MODE LA Ao Ratio MM 1.6 AV Cusp Separation MM 0.6 cm DOPPLER AV Peak Velocity 281.3 cm/s LVOT Peak Velocity 110.0 cm/s AV Area Cont Eq vti 1.3 cm squared AV Area Cont Eq pk 1.2 cm squared MV Peak Velocity 101.0 cm/s MV Area PHT 3.4 cm squared Mitral E to A Ratio 0.9 TR Peak Velocity 383.0 cm/s TR Peak Gradient 58.7 mmHg TR Mean Velocity 294.0 cm/s TR Mean Gradient 37.8 mmHg TR Velocity Time Integral 98.9 cm PV Peak Velocity 137.0 cm/s RV Ejection Time 0.3 s FINDINGS Left Ventricle Normal left ventricular size, systolic function and wall thickness, with no regional wall motion abnormalities. Left ventricular ejection fraction is estimated at 60 %. Grade I/IV diastolic dysfunction (abnormal relaxation filling pattern), normal to mildly elevated filling pressures. Right Ventricle The right ventricle is normal in size and function. Right Atrium The right atrium is normal in size. Left Atrium Mildly increased left atrial size. Mitral Valve Moderately thickened mitral valve. No mitral valve stenosis. Trace mitral valve regurgitation. Aortic Valve Severe aortic valve calcification. Moderate aortic valve stenosis, mean gradient 16.2 mmHg, MARIELOS 1.3 cm squared. Trace aortic valve regurgitation. Tricuspid Valve Structurally normal tricuspid valve without significant stenosis or regurgitation. Pulmonary artery systolic pressure is normal. Pulmonic Valve Structurally normal pulmonic valve without significant stenosis. There is no pulmonic regurgitation. Pericardium Normal pericardium without effusion. Aorta Normal ascending aorta dimension. IVC The inferior vena cava appears normal. CONCLUSIONS Normal left ventricular size, systolic function and wall thickness, with no regional wall motion abnormalities. Left ventricular ejection fraction is estimated at 60 %. Grade I/IV diastolic dysfunction (abnormal relaxation filling pattern), normal to mildly elevated filling pressures. Mildly increased left atrial size. Severe aortic valve calcification. Moderate aortic valve stenosis, mean gradient 16.2 mmHg, MARIELOS 1.3 cm squared. Trace aortic valve regurgitation. Moderately thickened mitral valve. No mitral valve stenosis. Trace mitral valve regurgitation. There is no pericardial effusion. Right atrial pressure is around 5 mm of mercury. Екатерина Godinez MD (Electronically Signed) Final Date: 24 January 2025 16:36 S
--- NOTE | 2025-01-24 09:22 | PM.PN ---
Subjective Subjective: Patient was bradycardic overnight with heart rate dropping to 57. Amiodarone turned off at 5 AM this morning. Medications: Reviewed: Yes Vitals/I&O/Wt Last Vital Signs Temp 97.2 F L 01/24/25 08:00 Pulse 68 01/24/25 08:00 Resp 18 01/24/25 08:00 BP 111/59 01/24/25 08:00 Pulse Ox 93 01/24/25 08:00 O2 Del Method Nasal Cannula 01/24/25 08:00 O2 Flow Rate 2 01/24/25 08:00 01/23/25 01/24/25 01/24/25 22:59 06:59 14:59 Intake Total 775.294 / 779.127 601.969 / 1381.096 220 / 220 Output Total 150 / 150 200 / 350 Balance 625.294 / 629.127 401.969 / 1031.096 220 / 220 Weight last 48 hrs Weight 115.575 kg Weight 94.886 kg Weight 94.347 kg Physical Exam Narrative: General: No acute distress, AO x3 HEENT: PERRLA, pupils bilaterally equal and reactive, pallors not present Chest: Scattered wheezing to auscultation on the right side. CVS: S1-S2 regular, no murmurs, no tachycardia, no gallops, no rubs Abdomen: Soft, nontender, no organomegaly, bowel sounds present Neuro: No focal deficits, no facial deformity, AO x3, power 5/5 in all limbs Data 01/24/25 02:18 01/24/25 02:18 A&P Assessment and plan 1. Atrial fibrillation with rapid ventricular response: On January 08, 69-year-old lady with comorbidities as listed above presenting to the hospital today with A-fib with RVR. States she had been feeling chest pressure, palpitations, which prompted the ER visit She was found to be in A-fib with RVR with a heart rate of 130s. She was hypotensive with blood pressure 91/64. She was started on amiodarone infusion. At the time of my assessment her heart rate is currently at 70 bpm, rate controlled in A-fib. Continue amiodarone infusion, reduce rate to 0.5 Overlap with home dose of metoprolol 12.5 mg p.o. twice daily If blood pressure allows, will likely increase the dose of metoprolol for maintenance. Baseline troponin at 11, 2 hours at 10.7. Pending 6-hour trend. Last echocardiogram reviewed from 2023 showing mild aortic valve stenosis MARIELOS of 1.6. EF of 59% without regional wall motion abnormalities. Mild tricuspid tricuspid valve regurgitation was noted along with PASP of 40 mmHg. Mild pulmonary hypertension. Patient is uncertain as to why she is not on anticoagulation. Per review of last cardiology note from November 2024, it is my understanding that A-fib was not a confirmed diagnosis till now. We will start patient on anticoagulation with Lovenox 1 mg/kg subcutaneously every 12 hours with plan to transition to oral Eliquis at the time of discharge. 2. Simple chronic bronchitis: COPD with recent exacerbation for which patient has just finished a course of prednisone as outpatient Will use Xopenex, budesonide and ipratropium for inpatient scheduled nebulization. Holding off on any steroids for now. Chest x-ray without consolidation. 3. Essential hypertension: Currently blood pressure is on the lower side. Withhold home dose of antihypertensives. Plan: DVT prophylaxis: Starting full dose Lovenox Full code January 24, 2025 Turned off amiodarone drip this morning as heart rate dropped to 57. Will hold off on adding amiodarone to her regimen currently. Increased dose of metoprolol to 25 mg p.o. twice daily and monitor for heart rate control. Echocardiogram ordered now that rate is better controlled. Assess for any change control coordinator previous, estimate EF, assess for regional wall motion abnormalities. Patient denies any current chest pain. On room air currently. Continue xopenex and budesonide inhalation. Bandar Vascor estimated to be at 3. Patient is hesitant to start Eliquis as an outpatient due to risk of bleeding. States that she would like to only be on aspirin 325 mg as outpatient. Will continue full dose Lovenox for now we will transition to aspirin 325 mg daily as an outpatient. PDMP PDMP Reviewed: Not Reviewed Attestations Medical Necessity Statement*: off amiodarone now. Increase metoprolol today, monitor HR and BP trend Coding Level of Care Code Acute Code for Chg Fwd Diagnoses Atrial fibrillation with rapid ventricular response I48.91 Simple chronic bronchitis J41.0 COPD type: chronic bronchitis Chronic bronchitis type: simple Essential hypertension I10
[2025-01-25] VITALS: BP 124/62; PULSE 67; RESP 14; TEMP 36.5; O2SAT 94
[2025-01-25 03:09] LABS: Hematocrit 41.8 % (36-47); Hemoglobin 13.30 g/dL (11.27-16.99); Mean Corpuscular HGB Conc 31.8 g/dL (30-55); Mean Corpuscular Hemoglobin 27.8 pg (27-33); Mean Corpuscular Volume 87.4 fl (85-98); Nucleated Red Blood Cells % 0 %; Platelet Count 269 10^3/cmm (157-399); Red Blood Count 4.78 10^6/uL (3.85-5.65); White Blood Count 7.31 10^3/uL (3.29-11.43)
[2025-01-25 03:33] LABS: Alanine Aminotransferase 12 U/L (0-33); Albumin Level 3.6 g/dL (3.5-5.2); Alkaline Phosphatase 80 U/L (35-105); Anion Gap 12.4 (5-19); Aspartate Amino Transferase 9 U/L (0-32); Blood Urea Nitrogen 17 mg/dL (8-23); Calcium 9.1 mg/dL (8.5-10.5); Carbon Dioxide 30 mmol/L (22-29); Chloride 100 mmol/L (98-107); Creatinine Clr Calc Pharmacy 74.3076; Globulin 2.6 g/dL (1.3-4.6); Glucose 103 mg/dL (65-115); Magnesium 1.7 mg/dL (1.7-2.3); Osmolality Calculated 290 mOsm/kg (285-295); Potassium 3.4 mmol/L (3.5-5.1); Sodium 139 mmol/L (136-145); Total Protein 6.2 g/dL (6.6-8.7)
[2025-01-25 04:00] VITALS: BP 121/48; PULSE 58; RESP 16; TEMP 36.6; O2SAT 98
[2025-01-25 05:22] VITALS: BMI 36.1
[2025-01-25 07:35] VITALS: BP 104/51; PULSE 58; RESP 21; TEMP 36.5; O2SAT 94
[2025-01-25 08:35] VITALS: PULSE 61; RESP 18; O2SAT 93
--- NOTE | 2025-01-25 09:44 | PC.SOCIAL ---
IMM Update Updated pt on IMM. No questions voiced. Provided pt a copy. Initialed, dated, & timed a copy & placed in chart.
--- NOTE | 2025-01-25 11:04 | PM.DCS ---
Discharge Providers Date of Admission: 01/23/25 12:46 Date of Discharge: January 25, 2025 Attending Provider at Admission: Brenda Rodriguez MD Attending Provider at Discharge: Yair Leija MD Primary Care Provider: Kamila Marsh MD Diagnoses at Discharge Discharge Diagnosis 1. Atrial fibrillation with rapid ventricular response: 2. Simple chronic bronchitis: 3. Essential hypertension: Reason for Visit Reason for Visit: hb varying wildly Brief History: 69 year old female presenting with atrial fibrillation with rapid ventricular response. Hospital Course Hospital Course Afib with RVR - also mildly hypotensive on admission - started on amiodarone infusion, the patient converted to sinus rhythm and infusion was stopped - she was restarted on home dose of metoprolol, increased to 25 mg BID - Last echocardiogram reviewed from 2023 showing mild aortic valve stenosis MARIELOS of 1.6. EF of 59% without regional wall motion abnormalities. Mild tricuspid tricuspid valve regurgitation was noted along with PASP of 40 mmHg. Mild pulmonary hypertension. - repeat echo this admission without significant change. - Patient is uncertain as to why she is not on anticoagulation. Per review of last cardiology note from November 2024, it is my understanding that A-fib was not a confirmed diagnosis till now. - she was started on anticoagulation with Lovenox 1 mg/kg subcutaneously every 12 hours with plan to transition to oral Eliquis at the time of discharge. she was apprehensive to start AC on discharge and was wanting to use full dose ASA instead, however explained to her that this is not a recommended treatment for Afib as it does not reduce the stroke risk but will increase bleeding risk. She is agreeable to use eliquis for now. Also discussed follow up with cardiology to consider watchman in the future, if she is a candidate, this would allow her to stop the AC safely. - can discharge on a holter monitor to assess burden of her afib, follow up with cardiology after discharge. 2. Simple chronic bronchitis: COPD with recent exacerbation for which patient has just finished a course of prednisone as outpatient Will use Xopenex, budesonide and ipratropium for inpatient scheduled nebulization. - did not require steroids during admission - Chest x-ray without consolidation. - recent CT lung screening for known pulmonary nodules: Hyperexpanded lungs with emphysema. Subpleural nodule RIGHT upper lobe 5 mm. Subpleural nodule LEFT lower lobe 3 mm. Subpleural nodule posterior medial LEFT lower lobe 7 mm. 3 mm nodule RIGHT upper lobe, image 61 series 5. - follow up with pulmonary after discharge for comparison from prior scan and ongoing follow up. 3. Essential hypertension: Currently blood pressure is on the lower side. Withhold home dose of antihypertensives. Disposition - discharge planning for today - Holter monitor on D/C to assess burden of Afib, follow up with cardiology for review and medication optimization for rate control, BP. - outpatient sleep study Physical Exam Const: COMMON NORMALS: no acute distress, average body habitus and patient oriented x3 NUTRITIONAL APPEARANCE: obese HENMT: COMMON NORMALS: normocephalic and atraumatic HEAD & SCALP: normocephalic and atraumatic Eye: COMMON NORMALS: Equal, round and reactive pupils present PUPIL: Yes Equal, round and reactive pupils present Resp: COMMON NORMALS: normal respiratory effort, No retractions and clear to auscultation bilaterally AUSCULTATION: clear to auscultation bilaterally Cardio: COMMON NORMALS: regular rate, regular rhythm, No gallops present (Cardio), No clicks present (Cardio), No murmurs present (Cardio) and No rub (Cardio) RATE: regular rate RHYTHM: regular rhythm GI: COMMON NORMALS: Soft to palpation, non-tender and no masses PALPATION: Yes Soft to palpation Neuro: COMMON NORMALS: patient oriented x3 and CN's II-XII intact bilaterally Discharge Data Studies Completed and Pending Completed Studies During Hospitalization Category Date Time Status XR chest 1V portable [id number] Stat Exams 01/23/25 12:30 Completed CV. echo complete* [id number] Routine Ultrasound 01/24/25 09:22 Completed Radiology Impressions Chest X-Ray 01/23/25 12:30 IMPRESSION: No acute findings. Laboratory Results WBC 7.31 10^3/uL (3.29-11.43) 01/25/25 02:47 RBC 4.78 10^6/uL (3.85-5.65) 01/25/25 02:47 Hgb 13.30 g/dL (11.27-16.99) 01/25/25 02:47 Hct 41.8 % (36-47) 01/25/25 02:47 MCV 87.4 fl (85-98) 01/25/25 02:47 MCH 27.8 pg (27-33) 01/25/25 02:47 MCHC 31.8 g/dL (30-55) 01/25/25 02:47 RDW 13.6 % (12.1-15.1) 01/25/25 02:47 Plt Count 269 10^3/cmm (157-399) 01/25/25 02:47 MPV 10.1 fL (7.4-10.4) 01/25/25 02:47 Neut % (Auto) 55.3 % 01/25/25 02:47 Lymph % (Auto) 28.9 % 01/25/25 02:47 Kay % (Auto) 12.4 % 01/25/25 02:47 Eos % (Auto) 2.3 % 01/25/25 02:47 Baso % (Auto) 0.4 % 01/25/25 02:47 Neut # (Auto) 4.04 10^3/uL (1.8-7.7) 01/25/25 02:47 Lymph # (Auto) 2.1 10^3/uL (0.8-4.8) 01/25/25 02:47 Kay # (Auto) 0.9 10^3/uL (0.2-0.9) 01/25/25 02:47 Eos # (Auto) 0.2 10^3/uL (0.0-0.8) 01/25/25 02:47 Baso # (Auto) 0.0 10^3/uL (0.0-0.1) 01/25/25 02:47 Nucleated RBC % (auto) 0 % 01/25/25 02:47 Nucleated RBCs # 0.0 /100WBC 01/25/25 02:47 Sodium 139 mmol/L (136-145) 01/25/25 02:47 Potassium 3.4 mmol/L (3.5-5.1) L 01/25/25 02:47 Chloride 100 mmol/L (98-107) 01/25/25 02:47 Carbon Dioxide 30 mmol/L (22-29) H 01/25/25 02:47 Anion Gap 12.4 (5-19) 01/25/25 02:47 BUN 17 mg/dL (8-23) 01/25/25 02:47 Creatinine 0.6 mg/dL (0.5-0.9) 01/25/25 02:47 GFR Calculation 99.1 mL/min (90-130) 01/25/25 02:47 Glucose 103 mg/dL (65-115) 01/25/25 02:47 Calculated Osmolality 290 mOsm/kg (285-295) 01/25/25 02:47 Calcium 9.1 mg/dL (8.5-10.5) 01/25/25 02:47 Magnesium 1.7 mg/dL (1.7-2.3) 01/25/25 02:47 Total Bilirubin 0.4 mg/dL (0.15-1.2) 01/25/25 02:47 AST 9 U/L (0-32) 01/25/25 02:47 ALT 12 U/L (0-33) 01/25/25 02:47 Alkaline Phosphatase 80 U/L (35-105) 01/25/25 02:47 Troponin T Baseline 11 ng/L (0-10) H 01/23/25 11:45 Troponin T 120 Minute 10.74 ng/L (0-10) H 01/23/25 13:51 Delta Troponin T -0.26 ABS# (0-10) L 01/23/25 13:51 Troponin T Hi Sens 6Hr 13.22 ng/L (0-10) H 01/23/25 17:38 Troponin T Hi Sens 6Hr Delta 2.22 ng/L (0-12) 01/23/25 17:38 NT-Pro-B Natriuret Pep 1066 pg/mL (0-125) H 01/23/25 11:45 Total Protein 6.2 g/dL (6.6-8.7) L 01/25/25 02:47 Albumin 3.6 g/dL (3.5-5.2) 01/25/25 02:47 Globulin 2.6 g/dL (1.3-4.6) 01/25/25 02:47 TSH 1.03 uIU/mL (0.27-4.20) 01/23/25 13:51 Urine Color Yellow (Yellow) 01/23/25 11:33 Urine Appearance Clear (CLEAR) 01/23/25 11:33 Urine pH 7.0 (5-7) 01/23/25 11:33 Ur Specific Walls 1.006 (1.005-1.030) 01/23/25 11:33 Urine Protein Negative (Negative) 01/23/25 11:33 Urine Glucose (UA) Negative (Normal) 01/23/25 11:33 Urine Ketones Negative (Negative) 01/23/25 11:33 Urine Blood Negative (Negative) 01/23/25 11:33 Urine Nitrate Negative (Negative) 01/23/25 11:33 Urine Bilirubin Negative (Negative) 01/23/25 11:33 Urine Urobilinogen 0.2 mg/dL (Negative) 01/23/25 11:33 Ur Leukocyte Esterase Negative (Negative) 01/23/25 11:33 Urine RBC 0-2 /hpf (0-2) 01/23/25 11:33 Urine WBC 0-5 /hpf (0-5) 01/23/25 11:33 Ur Squamous Epith Cells 0-5 /hpf (0-5) 01/23/25 11:33 Amorphous Sediment Not Reportable 01/23/25 11:33 Urine Bacteria None seen /hpf (NONE) 01/23/25 11:33 Hyaline Casts 0.81 /lpf 01/23/25 11:33 Adenovirus (PCR) Not detected (NOT DETECT) 01/23/25 17:31 C. pneumoniae DNA (PCR) Not detected (NOT DETECT) 01/23/25 17:31 Coronavirus 229E (PCR) Not detected (NOT DETECT) 01/23/25 17:31 Human Metapneumovir PCR Not detected (NOT DETECT) 01/23/25 17:31 Influenza A (H1) PCR Not detected (NOT DETECT) 01/23/25 17:31 Influ A (H1/09) PCR Not detected (NOT DETECT) 01/23/25 17:31 Influenza A (H3) PCR Not detected (NOT DETECT) 01/23/25 17:31 Influenza Type A (PCR) Not detected (NOT DETECT) 01/23/25 17:31 Influenza Type B (PCR) Not detected (NOT DETECT) 01/23/25 17:31 M. pneumoniae (PCR) Not detected (NOT DETECT) 01/23/25 17:31 Parainfluenza 1 (PCR) Not detected (NOT DETECT) 01/23/25 17:31 Parainfluenza 2 (PCR) Not detected (NOT DETECT) 01/23/25 17:31 Parainfluenza 3 (PCR) Not detected (NOT DETECT) 01/23/25 17:31 Parainfluenza 4 (PCR) Not detected (NOT DETECT) 01/23/25 17:31 RSV Type A (PCR) Not detected (NOT DETECT) 01/23/25 17:31 RSV Type B (PCR) Not detected (NOT DETECT) 01/23/25 17:31 Entero/Rhino (PCR) Not detected (NOT DETECT) 01/23/25 17:31 SARS-CoV-2 (PCR) Not detected (NOT DETECT) 01/23/25 17:31 Vitals Last Vital Signs Temp 97.7 F 01/25/25 07:35 Pulse 61 01/25/25 08:35 Resp 18 01/25/25 08:35 BP 104/51 01/25/25 07:35 Pulse Ox 93 01/25/25 08:35 O2 Del Method Room Air 01/25/25 08:35 O2 Flow Rate 2 01/24/25 08:00 Discharge Plan Discharge Patient Disposition: Home Condition: Stable Prescriptions: New Eliquis 5 mg tablet 5 mg PO BID Qty: 60 2RF metoprolol tartrate 25 mg Tablet 25 mg PO BID@0900,2100 Qty: 60 2RF Continued (DME) Depend Underwear For Women XL Misc See Rx Instructions .Route Qty: 90 12RF Rx Instructions: 3 daily fluticasone propionate [Allergy Relief (fluticasone)] 50 mcg/actuation spray,suspension 1 spray INTRANASAL DAILY PRN (Reason: allergies) albuterol sulfate 90 mcg/actuation HFA aerosol inhaler 2 puff INHALATION QID PRN (Reason: shortness of breath or wheezing) Qty: 18 5RF albuterol sulfate 2.5 mg /3 mL (0.083 %) solution for nebulization 2.5 mg INHALATION Q4H PRN (Reason: shortness of breath or wheezing) Qty: 180 5RF fluticasone propion-salmeterol [Advair HFA] 230-21 mcg/actuation HFA aerosol inhaler 2 puff inhalation BID Qty: 12 5RF Rx Instructions: administer with spacer erythromycin 5 mg/gram (0.5 %) ointment 1 applic ophthalmic (eye) BID 7 Days Qty: 3.5 0RF furosemide [Lasix] 20 mg tablet 20 mg PO QAM 90 Days Qty: 90 3RF pantoprazole 40 mg tablet,delayed release (DR/EC) 40 mg PO DAILY 90 Days Qty: 90 2RF potassium chloride 20 mEq tablet extended release 20 meq PO BID 90 Days Qty: 180 2RF tizanidine 2 mg tablet 2 mg PO .at bedtime PRN (Reason: muscle spasticity) Qty: 90 3RF lactulose 10 gram/15 mL solution 20 g PO .Q2Hrs PRN (Reason: constipation) Qty: 946 1RF bisacodyl 10 mg suppository [address] DAILY PRN (Reason: constipation) Qty: 12 0RF fexofenadine 180 mg tablet 180 mg PO DAILY PRN (Reason: allergies) allopurinol 100 mg tablet 100 mg PO DAILY Combivent Respimat 20-100 mcg/actuation mist 1 puff inhalation Q4H PRN (Reason: Shortness Of Breath) Discontinued metoprolol succinate 25 mg tablet extended release 24 hr 25 mg PO DAILY 90 Days Qty: 90 3RF losartan-hydrochlorothiazide 100-25 mg tablet 1 tab PO DAILY 90 Days Qty: 90 2RF amlodipine 10 mg tablet 10 mg PO DAILY Discharge Order = DC NOW: Discharge Order (Routine); Ordered 01/25/25 Ordered By: Yair Leija Other Ambulatory Orders: ECG holter monitor 15 Days (Routine) Timeframe: 1 Week Facility: [facility] - Location: Radiology Ordered By: Yair Leija Sleep Study/Titration (Routine) Timeframe: 2 Months Facility: [facility] - Location: [facility] Ordered By: Yair Leija Referrals: Ata Bhakta M.D [Physician, Cardiology] - 2 weeks Referral Note: Afib with RVR, new Problems: Essential hypertension; Atrial fibrillation with rapid ventricular response Kamila Marsh MD [Primary Care Provider, Family Practice] - 01/27/25 10:45 am Discharge Diet: Advance as tolerated Discharge Activity: Resume usual activity Patient Instructions: A-fib (Atrial Fibrillation) (DC), COPD (Chronic Obstructive Pulmonary Disease) (DC), Hypertension (DC), Opioid Safety, Patient Portal & Elie Instructions Discharge Attestations Time Spent in Discharge Care*: greater than 30 min Specific Discharge Activities: educating patient, discussing with business case analyst/social workers/dc planners, documenting/other paperwork and evaluating patient/reviewing data Quality Metrics Clinical Quality Measures [ No reported AMI, CVA or VTE this stay] Coding Level of Care Code Acute Code for Chg Fwd Diagnoses Atrial fibrillation with rapid ventricular response I48.91 Simple chronic bronchitis J41.0 COPD type: chronic bronchitis Chronic bronchitis type: simple Essential hypertension I10
[2025-01-25 12:00] VITALS: BP 132/66; PULSE 72; RESP 19; O2SAT 95
[2025-01-25 13:05] VITALS: BP 132/66; PULSE 65; O2SAT 92
--- NOTE | 2025-01-25 14:21 | PC.NURSE ---
Discharge Note Patient discharged to home via bed accompanied by . Discharge instructions reviewed with patient and/or sales service representative. Mobile pharmacy medications and/or prescriptions provided. Anticoagulation therapy, eliquis and metoprolol side effects,what symptoms of bleeding to watch for and bradycardia.Belongings/home medications returned.
== END 2025-01-25 13:47 | disposition home or self-care (01) | DRG 310 ==
LOC: ER 13:01 → CSU 13:13
PROVIDERS: General Practice; Admitting Provider Student in an Organized Health Care Education/Training Program; Emergency Provider Emergency Medicine; PCP Family Medicine; Visit Provider Internal Medicine
DX: I48.91 Unspecified atrial fibrillation (principal); J41.0 Simple chronic bronchitis; I50.9 Heart failure, unspecified; I11.0 Hypertensive heart disease with heart failure; F17.210 Nicotine dependence, cigarettes, uncomplicated; R09.02 Hypoxemia; E78.5 Hyperlipidemia, unspecified; K21.9 Gastro-esophageal reflux disease without esophagitis; Z86.73 Personal history of transient ischemic attack (TIA), and cerebral infarction without residual deficits
CPT/HCPCS: 36415; 71045; 80053; 81001; 83735; 83880; 84443; 84484; 85025; 87486; 87581; 87633; 93005; 93306; 94640; 96365; 96367; 96372; 96375; 99285; A4222; J0283; J1650; J3490; J7614; J7626; J7644; J9999

== ENCOUNTER → 2025-01-28 11:10 | Outpatient (BNVA) | payer OTHER, MEDICARE, SELFPAY | PROVIDERS: PCP Family Medicine; Visit Provider Nurse Practitioner | DX: R30.0 Dysuria (principal) | CPT/HCPCS: 81000; 87086 ==

== ENCOUNTER → 2025-02-03 10:37 | Outpatient (BNVA) | payer OTHER, MEDICARE, SELFPAY | PROVIDERS: PCP Family Medicine; Visit Provider Family Medicine | DX: N39.0 Urinary tract infection, site not specified (principal) | CPT/HCPCS: 81000 ==

== ENCOUNTER → 2025-04-28 10:52 | Outpatient (BNVA) | payer OTHER, MEDICARE, SELFPAY | PROVIDERS: PCP Family Medicine; Visit Provider Nurse Practitioner | DX: R68.89 Other general symptoms and signs (principal); R05.9 Cough, unspecified | CPT/HCPCS: 71046; 87400; 87426 ==

== ENCOUNTER → 2025-04-29 10:39 | Outpatient (BNVA) | payer OTHER, MEDICARE, SELFPAY | PROVIDERS: PCP Family Medicine; Visit Provider Family Medicine | DX: I10 Essential (primary) hypertension (principal); E78.5 Hyperlipidemia, unspecified; R73.9 Hyperglycemia, unspecified | CPT/HCPCS: 80048; 80061; 83036 ==

== ENCOUNTER → 2025-06-15 09:10 | Outpatient (BNVA) | payer OTHER, MEDICARE, SELFPAY | PROVIDERS: PCP Family Medicine; Visit Provider Family Medicine | DX: R68.89 Other general symptoms and signs (principal) | CPT/HCPCS: 87486; 87581; 87633 ==